=== PATIENT | male | born 1955 | race Caucasian/White ===

== ENCOUNTER → 2020-06-16 10:47 | Outpatient (BNVA) | payer MEDICARE, SELFPAY | PROVIDERS: PCP Family Medicine; Referring Provider Family Medicine; Visit Provider Surgery | DX: Z12.11 Encounter for screening for malignant neoplasm of colon (principal) | CPT/HCPCS: 99202 ==

== ENCOUNTER 2020-06-24 12:48 | Day surgery (SDC) | payer MEDICARE, SELFPAY ==
[2020-06-24 12:55] VITALS: BP 140/83; PULSE 67; RESP 16; TEMP 36.7; O2SAT 95
[2020-06-24] MEDS: Lactated Ringers 1,000 ML 80 ML IV (13:28)
--- NOTE | 2020-06-24 14:43 | W.PM.DSUDISC ---
Discharge Plan Disposition Patient Disposition: HOME Condition: Good Discharge Details Reason For Visit: colon scope Attending Provider: Angela Rutledge Primary Care Provider: Phil Ventura Discharge Instructions Additional Instructions: Findings:diverticula (moderate) - follow a high fiber diet and avoid straining to move your bowels -small lt meals x 24 hours -no lifting over 20#'s or strenuous actively x 24 hrs Follow up: repeat in 10 yrs time if still healthy for anesthesia Please call if you develop: fevers >101.5 Nausea or Vomiting Abdominal pain that is not transient DAY SURGERY UNIT POST COLONOSCOPY INSTRUCTIONS 1. Because there will be medication in your system for the next 24 hours, you may feel a little sleepy. Your coordination will be affected. Therefore: a. Do not drive or operate dangerous equipment for 24 hours. b. Do not drink alcohol beverages for 24 hours (not even beer). c. Plan to go home and rest for the day. 2. Generally there are no restrictions on your activity after a day or so has gone by, but you may feel a bit fatigued for a few days. 3 After you arrive home you may have a light meal and return to a normal diet as you can tolerate it without feeling sick to your stomach. 4. After surgery, you may feel pain or discomfort. This should be only transient, but if it persists please contact your doctor. 5. If there are any questions regarding the findings of your procedure, please feel free to contact your doctor. 6. If you are unable to contact your doctor with a problem, contact the hospital at [phone]. 7. Continue all your regular medications unless directed otherwise. I understand the above instructions and have no questions. Signature of Patient or Responsible Adult Escort Date/Time Name of Responsible Adult Escort Signature of Nurse Date/Time High Fiber Diet What is Dietary Fiber? All fiber comes from plants, bushes, loly or trees. Of course, the ones that we eat provide us with fruits, vegetables and grains. There are many different types of fiber but the three that are most important to the health of the body are: Insoluble Fiber This fiber does not dissolve in water, nor is it fermented by the bacteria residing in the colon. Rather, it retains water and in so doing, helps to promote a larger, bulkier and more regular bowel activity. This, in turn, may be important in preventing disorder such as diverticulosis and hemorrhoids, and in sweeping out certain toxins and cancer causing carcinogens. Sources of insoluble fiber are: ? whole grain wheat and other whole grains ? corn bran, including popcorn, unflavored and unsweetened ? nuts and seeds ? potatoes and the skins from most fruits from trees such as apples, bananas and avocados ? many green vegetables such as green beans, zucchini, celery and cauliflower ? some fruit plants such as tomatoes and kiwi Soluble Fiber These fibers are fermented or used by the colon bacteria as a food source or nourishment. When these good bacteria grow and thrive, many health benefits occur in both the colon and the body. Soluble fiber is present in some degree in most edible plant foods, but the ones with the most soluble fiber include: ? legumes such as peas and most beans, including soybeans ? oats, rye and barley ? many fruits such as berries, plums, apples bananas and pears ? certain vegetables such as broccoli and carrots ? most root vegetables ? psyllium husk supplement products Prebiotic Soluble Fiber These are relatively newly discovered soluble plant fibers. The technical name for this fiber is inulin or fructan. When these soluble fibers are fermented by the good colon bacteria, some further significant health benefits have been shown to occur by research in many medical centers. These soluble prebiotic fibers occur in significant amounts in: ? asparagus ? yams ? onions ? garlic ? bananas ? leeks ? agave ? chicory and other root vegetables such as [place] artichokes ? wheat, rye and barley (smaller amounts) Benefits of a High Fiber Diet The health benefits of a high fiber diet, consumed on a regular basis and reaching recommended amounts (below), are now fairly well-defined. There are some additional benefits in the early research stage with the prebiotic soluble fibers. What is now known regarding a high fiber diet include: Bowel Regularity A high fiber diet promotes regularity with a softer, bulkier and regular stool pattern. This decreases the chance of hemorrhoids, diverticulosis and perhaps colon cancer. Cholesterol and Reduced Triglycerides The soluble fibers are the ones that will reduce cholesterol levels when used on a regular basis. Psyllium husk and prebiotic soluble fiber will also reduce cholesterol. They may also reduce the incidence of coronary heart disease. Oats, flax seeds and legumes or beans are the recommended fibers. Colon Polyps and Cancer It is still not certain if a high fiber diet helps prevent colon cancer. Considerable research suggests that this may occur. Certainly it makes sense to increase regularity and so speed the movement of cancer causing carcinogens through the bowel. In addition, reducing a heavy meat diet reduces the bile flow from the liver in a favorable way. This, too, reduces the amount of carcinogens that reach and are manufactured in the colon. Finally, a high fiber diet, including prebiotic soluble fiber, increases the integrity and health of the wall of the colon. The risk of cancer may be reduced. Colon Wall Integrity A high fiber diet changes the bacterial makeup of the colon toward a more favorable balance. For instance, it is known that those people with obesity, diabetes type 2 and inflammatory bowel disease have a predominance of bad bacteria in the colon. This, in turn, may render the bowel wall weak and allow bacteria and, indeed, even toxins to seep through. A high fiber diet with a modest reduction in animal and meat products may return the bacterial makeup to a more positive balance. This, in particular, has been seen when the soluble fiber prebiotics are added to the diet. Blood Sugar Soluble fiber such as in legumes (beans), oats and in prebiotic fibers slows the absorption of blood sugar and so helps regulate the sugar in the blood. Insoluble fiber on a regular basis is associated with reduced risk of type 2 diabetes. Weight Loss High fiber diets are more filling and give a sense of fullness sooner than an animal and meat based diet does. In addition, the soluble prebiotic fibers have been shown to turn off the hunger hormones produced in the wall of the gut and to increase the hormones that give a sense of fullness. Those hormones are made in the wall of the gut. New medical research has shown that the bacterial makeup in the colon in overweight people is abnormal to the extent that they manufacture and absorb almost twice the number of calories through the colon wall as do normals. Prebiotic fibers (below) will help change this hormonal balancein a favorable way. Bacteria and the Function of the Colon The colon finishes the digestive process. Hopefully, the waste products move through in a nice regular manner. Insoluble fibers help this process by retaining water and so producing a bulkier, softer stool, which is easy to pass. The additional role of the colon is to provide a home for an enormous number of micro-organisms, mostly bacteria. Recent research has shown that there are over 1,000 species of bacteria with a total bacterial count ten times the number of cells in the body. These bacteria play a major role in keeping the colon wall itself healthy. In addition, these good bacteria produce a very strong immune system for the body. They significantly increase calcium absorption and bone density. They provide other documented benefits. It is the soluble fibers in the diet that are so effective in stimulating the growth of good colon bacteria. How Much is Enough? The amount of fiber in food is measured in grams. National nutritional authorities recommend the following amounts of dietary fiber daily. Under Age 50 Over Age 50 Men 38 grams 30 grams Women 25 grams 21 grams For a week or so, it is best to tally the amount of fiber you are consuming. Boxed and packaged foods will have the amount of fiber per serving on the nutrition label. Which Fibers and Which Foods are Best? As noted, healthy fiber is only found in plants. The three major categories are whole grains, fruits and vegetables. Whole Grains Wheat, oats, barley, wild or brown rice, amaranth, buckwheat, bulgur, corn, millet, quinoa, rye, sorghum, teff and triticals. By far, wheat, oats and wild or brown rice are most common. Always buy whole grain products. White bread, baked goods and rolls almost always are made from wheat flour. Wheat flour is white because most of the fiber, vitamins and other nutrients have been removed. Try not buy enriched grains. What this means is that simple white flour has had vitamins added to it by the grain commodity manager. The word, enriched, implies a good and healthy product. On the contrary, enriched means that most of the fiber has been removed and a few vitamins added. Fruits Fruits come from trees such as apple and pear or from bushes or loly. You should eat a wide variety of fruits, preferably with every meal. In many cases, the skin of a fruit such as apple will contain much of the insoluble fiber while the pulp contains most of the soluble fiber. To the extent possible, buy organic fruits as these will have little or no pesticides. Always wash fruit. Vegetables Eat a wide variety of vegetables. They should be a mainstay of lunch and dinners. Frozen vegetables retain as much nutrition and fiber as fresh vegetables. As with fruit, try to buy organic to reduce any residual pesticide ingestion. Wash fresh vegetables thoroughly. Cruciferous vegetables such as broccoli, [place] sprouts and cauliflower contain certain chemicals such as sulforaphane. This substance has very strong anti-cancer properties and should be eaten frequently. Legumes, Beans, Peas and Soybeans These vegetables have plenty of soluble fiber and should be part of a varied vegetable intake. Beans, in particular, contain a certain type of fiber that may lead to harmless gas or bloating. Nuts and Seeds These are rich sources of fiber and are a good substitute for sweets such as candies and baked sweet goods. While nuts and seeds are rich in fiber, they also contain vegetable fat and so can and do add calories. Read the Labels As noted, fresh and frozen foods are usually better. They have good nutrition and few, if any, chemicals added to them. When buying packaged foods and, in particular grains, look for three things: ? The first word on the label should be whole, such as whole wheat or whole grain. ? Check out the calories and the amount of fiber in a serving. ? How many and what other additives or chemicals are added. Fewer is always better. Do you know what each additive does? Some are added not for the benefit of the laboratory equipment installer but rather for manufacturers. These could and do include sugar, artificial flavor, chemicals to prevent oxidation and spoilage, emulsifiers to blend the product. You have to be a starch cooker. Fiber Facts, Nuggets and Pearls ? For breakfast you can easily get the day started well by using a high fiber, whole grain cereal. Check the labels. Add fruit such as blueberries and bananas. If you are an egg eater, use whole wheat or grain toast. Adding wheat germ gives you a good fiber kick. ? Always use whole grain or wheat with rolls and sandwiches. Does your fast food store not have them? Perhaps you look elsewhere. Eating an occasional black amador or veggie burger provides variety. ? Snacks should consist of fruit and/or nuts. While nuts are loaded with fiber, they are an energy rich food, meaning they have a lot of calories in a small packet. ? Fruit juices should contain pulp. Clear juices such as clear orange, pear or apple juice contain little fiber and have a lot of fructose. Prune juice is usually high in fiber. ? Homemade soups ? adding fresh or frozen vegetables to a chicken or vegetable stock is a good way to start homemade soup. ? Salads ? adding cooked and then chilled vegetables provide great flavoring to almost any salad. Remember, a lee salad has lots of cooked corn in it. Small slices of apples or oranges and nuts such as chopped walnuts or sliced almonds always adds taste, variety and fiber to almost any salad. ? Fruit ? Try to eat fruit of some type with almost every meal. ? Rethink how you place the various foods on your dinner plate. Reducing the portions of the meat or animal food portion to the side with equal or more portions of vegetables, legumes and fruits portion always allows for more fiber. There was never anything magic about making the meat or animal food portion the main part of the dinner plate. Eating from smaller plates can, over time, trick your mind and penitentiary habit of using a dinner plate. Again, there is nothing magic in an 11, 12, or 13 inch dinner plate. Fiber Supplements There are a variety of fiber supplements available on the food or pharmacy shelves. Psyllium This soluble plant fiber has been used in [place] for over 2,000 years. It is a soluble fiber with mucilage in it. This acts to retain a lot of water and also is fermented by colon bacteria. When 7 grams a day are used, it does lower cholesterol. Metamucil in various forms is psyllium. Methyl Cellulose All the cellulose products come from finely ground wood chips which are then treated in a variety of ways such as boiling in acids. Methyl cellulose is an insoluble fiber which does dissolve in water. It is also an emulsifier, meaning it blends oils and water. Citrucel is methyl cellulose (MC). MC may not be appropriate for Crohn?s disease or ulcerative colitis as several medical studies have shown that certain emulsifiers dissolve the mucous lining of the colon in animals prone to Crohn?s disease. This then allows bacteria to invade the underlying tissue. Inulin Inulin is a soluble prebiotic fiber found in many foods and which are fermented mostly in the left side of the colon. It is available in a supplement as generic inulin and in Fiber Choice. Oligofructose FOS These are also prebiotic fibers. They are fermented very quickly in the right side of the colon. Prebiotin This product is a combination of oligofructose, which feeds the bacteria in the right side of the colon and inulin, which does the same in the left side of the colon. There seems to be a benefit for this particular formula based on medical research. Prebiotic Soluble Fiber These may be the healthiest of all the soluble fibers. They grow in many plants and have had a great deal of research done on them in the last 10-15 years. These fibers are found in asparagus, yams and other root vegetables such as chicory, garlic, onion, leeks and in smaller amounts in wheat. This research has shown the following: ? Increase in good and decrease in bad colon bacteria ? Increase calcium absorption and enhanced bone mass ? Enhanced immune system ? Appetite and weight control by changing the hormone appetite signals to the brain ? May decrease colon cancer incidence ? Reduce or correct a leaky colon Eating a wide variety of plant food up to the recommended amount will likely give you enough prebiotic fiber. Supplements such as Prebiotin can be added to the diet. Short Chain Fatty Acids (SCFA) Some rather remarkable research findings have shown that one of the benefits of ingesting a lot of soluble fiber, in particular the prebiotic ones, results in larger amounts of SCFAs in the colon. These SCFAs are made by the good bacteria in the colon such as Bifidobacter and Lactobacillus. These small molecules have been shown to do the following: ? Enhance the health and integrity of the colon wall ? Provide nourishment for the cells that actually line the colon ? Increases the acidity of the colon which is a very real health benefit ? Stabilize blood sugar for diabetics ? Reduce blood cholesterol and triglyceride ? Significantly enhance immunity ? May be a benefit for Crohn?s disease and ulcerative colitis patients Fiber and Gas Everyone has intestinal gas and that is a good thing. It means that bacteria, hopefully the good ones, are thriving. The normal amount of flatus passed each day depends on sex and what is eaten. The normal number of flatus is 10-20 times a day. When the bacteria that make intestinal gases are growing, it also means that other good bacteria are using the same fibers to grow and produce multiple health benefits, including the production of healthy short-chain fatty acids. These substances are produced quietly in the colon and produce many health-related outcomes. Soluble fiber should always be used in a gradual manner. If too much is consumed at any one time, then excess, but harmless, intestinal gas can occur. People with irritable bowel syndrome are particularly prone to bloating and mild cramping. In this instance, soluble fiber in the diet or supplement should be used in small doses and increased gradually. Finally, prebiotic fibers tend to cause the production of short-chain fatty acids which acidify the colon. This, in turn, reduces or stops the growth of bacteria that make the smelly hydrogen sulfide gases that produce noxious flatus. People who consume many vegetables with prebiotics or take a prebiotic fiber supplement often have non-odoriferous flatus. Fiber and Irritable Bowel Syndrome Irritable bowel syndrome (IBS) is one of the most common disorders of the lower digestive tract. The symptoms of IBS can be quite varied. They can be a mix of several symptoms such as constipation, diarrhea, crampy abdominal discomfort, bloating and gas. An attack of IBS can be triggered by emotional tension and anxiety, poor dietary habits and certain medications. It is now known that infections in the intestine can lead to long-term IBS symptoms. Increased amounts of fiber in the diet can help relieve the symptoms of irritable bowel syndrome by producing soft, bulky stools. This helps to normalize the time it takes for the stool to pass through the colon. Recent medical research with newer techniques has shown some surprising and dramatic findings for IBS patients. Specifically, there is a very significant and abnormal shift of bacteria from those that provide health benefits to those bad bacteria that we really do not want in the gut. The technical name for this bad group of bacteria is called Firmicutes. Along with this abnormal bacterial collection, there is a smoldering low-grade inflammation in the gut wall that may contribute to symptoms. The goal for IBS patients should be to gradually increase the soluble dietary fibers in the diet so as to promote the growth of good bacteria and so suppress the bad ones along with the associated inflammation. IBS patients need to be careful of the amount of soluble fiber they consume. The reason for this is that, while the good colon bacteria thrive on these fibers and produce health benefits, other gas-forming bacteria may generate excessive but harmless gas and subsequent bloating. Thus, soluble plant fibers or a dietary prebiotic supplement should be taken in small initial doses and then gradually increased to tolerance. Fiber and Colon Polyps/Cancer Colon cancer is a major health problem. This disease is most common in Western cultures. It is not seen very often in rural cultures where the diet is mostly plant based. Usually, colon cancer starts out as a colon polyp, a benign mushroom-shaped growth. In time it grows, and in some people it becomes cancerous. Colon cancer is usually always curable if polyps are removed when found or if surgery is performed at an early stage. It is now known that people can inherit the risk of developing colon cancer, but diet is important, too. As noted, there is a very low rate of colon cancer in residents of countries where grains are unprocessed and retain their fiber. It seems that in the [place] world, cancer-containing agents (carcinogens) remain in contact with the colon wall for a longer time and in higher concentrations. So, a large bulky stool may act to dilute these carcinogens by moving them through the bowel more quickly. Less carcinogenic exposure to the colon may mean fewer colon polyps and less cancer. A very current review of the entire world?s literature on the effect of fiber on colon polyps and cancer prevention has shown rather clearly that for every 10 grams of fiber added to the diet, there is a 10% reduction in incidence of colon cancer. So the recommended 30 gram fiber diet would result in a 30% less chance of getting these tumors. There are also substances produced in the colon by the good bacteria that seem to retard certain pre-cancer factors from developing. They are called short-chain fatty acids (SCFA). See above for description of SCFAs. A high fiber diet increases these substances. So, the combination of dietary fiber and the production of short-chain fatty acids have a clear health benefit. Fiber and Diverticulosis Prolonged, vigorous contraction of the colon over a long period of time may result in diverticulosis. This increased pressure causes small and, eventually, larger ballooning pockets to form. These pockets by themselves cause no problem. However, sometimes they become infected (diverticulitis) or even break open (perforate) causing infection or inflammation within the abdomen (peritonitis). A high fiber diet increases the bulk in the stool and thereby reduces the pressure within the colon. By so doing, the formation of pockets may be reduced or possibly even stopped. In the past, many physicians were fearful that seeds as in tomatoes, nuts or berries were harmful and could get inside these pockets and rattle around, causing damage. We now know that this has never been the case and that these foods contain lots of fiber and are actually beneficial for diverticulosis patients. Certain bulking agents such as psyllium are traditional types of bulk producing supplements. Psyllium is a soluble fiber. Combining it with insoluble fiber as in wheat bran or corn bran (no gluten) can enhance this bulking effect even more. A product containing a prebiotic, psyllium and wheat bran is probably a very good combination for bowel regularity. Prebiotin Regularity/Diverticulosis is one such product. Activity:: no lifting or 20#'s Diet:: small light meals x 24 hr Discharge Orders Discharge Orders: Discharge Order (Routine); Ordered 06/24/20 Ordered By: Angela Rutledge DS: Diagnosis Discharge Diagnosis (1) Colon cancer screening: Status: Acute (2) Diverticular disease of large intestine: Status: Acute
[2020-06-24 15:27] VITALS: BP 154/83; PULSE 60; RESP 16; TEMP 36.4; O2SAT 97
--- NOTE | 2020-06-27 17:54 | COLE_ITS ---
Date of service: 06/24/20 Time of Service: 13:40 Colonoscopy Report Date of procedure: 06/24/20 Pre-op diagnosis general: crc screen Post-op diagnosis procedure note: other (diverticular Dx) Procedure: CE Surgeon: Angela Rutledge Anesthesia proc note operative: MAC Estimated blood loss (mL): 0 Pathology: none sent Complications: None Disposition: same day Prep: Miralax/Dulcolax Retraction Time: 9 mins Procedure Description: After informed consent was obtained the patient was taken to the procedure room and placed in a left decubitous position. Monitors were applied and a time out was done. The patients name, date of , procedure, allergies to medications and metal in their body was reviewed. The patient was then sedated. Once sedated and comfortable a rectal exam was done. External exam was normal. Internal exam revealed a normal sphincter tone and no palpable masses. The scope was then introduced and retrofelexed. no internal hemorrhoids were identified. The scope was then advanced to the cecum w/ difficulty. The TI and appendiceal orifice were identified. The prep was good. The scope was then slowly retracted over 9 minutes back into the rectum. Polyps were removed: none. Patient does have moderate to severe diverticular disease confined to the sigmoid colon. There is no signs of active bleeding or infection. There is no polyps or AVMs noted. The scope was removed and the patient was woken up and taken back to Same day surgery in stable condition. The patient tolerated the procedure well and there were no immediate complicat ions. Follow up: The patient should follow up in 10 years unless they develop changes in bowel habits or other new gastrointestinal complaints, if he is still healthy for anesthesia. Does not necessarily need to have a repeat scope if asymp. Follow a high fiber diet.
== END 2020-06-24 15:45 | disposition home or self-care (01) ==
PROVIDERS: PCP Family Medicine; Visit Provider Surgery
PROC: 0DJD8ZZ Inspection of Lower Intestinal Tract, Via Natural or Artificial Opening Endoscopic (ICD-10-PCS; CPT 45378; principal; 2020-06-24 13:45)
DX: Z12.11 Encounter for screening for malignant neoplasm of colon (principal)
CPT/HCPCS: G0121

== ENCOUNTER 2020-06-29 07:22 | Outpatient (CLI) | payer MEDICARE, SELFPAY ==
[2020-07-01 12:22] LABS: Patient Race White; SARS-CoV-2 RNA Undetected (Undetected); SARS-CoV-2 Specimen Source Nasopharynx
== END 2020-06-29 07:42 ==
PROVIDERS: PCP Family Medicine; Visit Provider Family Medicine
DX: Z20.828 Contact with and (suspected) exposure to other viral communicable diseases (principal)
CPT/HCPCS: U0003

== ENCOUNTER 2024-01-28 00:53 | Inpatient (IN) | payer MEDICARE, SELFPAY ==
[2024-01-28] VITALS (59 sets, daily range): BP systolic 109–165; BP diastolic 71–117; PULSE 67–100; RESP 5–22; TEMP 36.7–37.8; O2SAT 93–100
--- NOTE | 2024-01-28 00:45 | RT.EKG_ITS ---
APPROVED REPORT Exam: Resting ECG Reason for Exam: chest paijn Patient Location: E HR:85 bpm ECG Measurements Heart Rate 85 AXIS CA 192 P 55 QRSd 82 QRS 52 QT 373 T 27 QTc 443 Conclusion Sinus rhythm...normal P axis, V-rate 60- [address] segment or t wave abnormalities to suggest occlusive mi
--- NOTE | 2024-01-28 01:15 | DI.CT_ITS ---
Exam(s) CT ABDOMEN PELVIS W EXAM: CT ABDOMEN PELVIS W CLINICAL HISTORY: diffuse abd pain, RUQ TTP with guarding TECHNIQUE: Imaging Protocol: Axial computed tomography images with coronal and sagittal reformatted images were created and reviewed. CONTRAST MATERIAL: Intravenous: Omnipaque 350 Contrast volume:100 mL Oral: No COMPARISON: No exams were available for comparison FINDINGS: ABDOMEN: Lung Bases: Coronary artery calcifications are present. There is scarring or atelectasis in the righ t lower lobe. Liver: Normal density. No measurable mass. Portal, Superior Mesenteric, and Splenic Veins: Unremarkable. Gallbladder and Biliary Tract: The gallbladder is distended. There are gallstones present. There is mild inflammation seen around the gallbladder wall in the gallbladder fossa. There is no biliary du ctal dilatation. Pancreas: Normal density, no abnormal calcifications or inflammatory process. Spleen: Normal. Adrenals: No masses seen. Kidneys: Normal size, contour and axis. No radiodense stones or obstructive uropathy. Simple bilatera l renal cysts are present. No follow-up is recommended. Abdominal Aorta: Abdominal portion non-dilated. Atherosclerotic calcification is present. Bowel: There is diverticulosis of the colon without evidence of acute diverticulitis. There is a div erticulum associated with the head of the pancreas likely reflecting a duodenal diverticulum. The st omach is incompletely distended limiting evaluation. Appendix is unremarkable. Peritoneal Cavity: No ascites, collection or mesenteric inflammatory response. No free air. Lymph Nodes: Within normal limits. Bones: Within normal limits for the patient's age. Soft Tissues: There are small fat containing bilateral inguinal hernias. PELVIS: Bladder: The urinary bladder is incompletely distended. There is diffuse thickening of the wall of t he urinary bladder. Reproductive Organs: Mild enlargement of the prostate gland. Lymph Nodes: Within normal limits. Bones: Within normal limits for the patient's age. IMPRESSION: 1. Findings suggestive of acute cholecystitis. Cholelithiasis is present. No biliary ductal dilatat ion. 2. Diffuse thickening of the wall of the urinary bladder. This may be due to underdistention. Chron ic bladder outlet obstruction or cystitis should also be considered. Please correlate clinically. RADIATION DOSE DELIVERED: 911.92mGy.cm Total DLP DATA REPOSITORY: All CT scans at this facility are submitted to the National Radiology Data Registry (NRDR) Dose Index Registry (DIR) with the [employer] (ACR). RADIATION OPTIMIZATION: All CT scans at this facility use at least one of these dose optimization te chniques: automated exposure control; mA and/or kV adjustment per patient size (includes targeted exa ms where dose is matched to clinical indication); or iterative reconstruction.
--- NOTE | 2024-01-28 01:20 | ED.GENADUL_ITS ---
Discharge Plan Disposition Patient Disposition: Admit to [facility] Condition: Serious Discharge Details Chief Complaint: Abd Prob Clinical Impression: Acute cholecystitis Primary Care Provider: Phil Ventura ED Provider: Neetu Gonzalez Home Meds and New Rx's Prescriptions: No Action No Known Home Meds HPI General Mode of arrival: ambulatory . Date/Time Provider Initiated Documentation: 01/28/24 01:18 . Limitations to Documentation: no limitations . Information obtained by: patient . HPI Narrative: 68yo M with hx of HTN, not on any medications, presenting for 3 days of right sided abdominal pain, feels similar to prior kidney stones. Pain is constant, severe, and now associated with nausea. No vomiting. No dysuria or hematuria. No chest pain, shortness of breath, or lightheadedness. Otherwise in his usual state of health with no fevers, chills, rash, injury, numbness, tingling, weakness, or other concerns. Related Data Home Medications Medication Instructions Recorded Confirmed Unknown [No Known Home Meds] 07/13/20 01/28/24 Allergies Allergy/AdvReac Type Severity Reaction Status Date / Time amoxicillin Allergy Unknown Verified 07/13/20 10:04 General Stated Complaint: Abd Prob WILLIE: 3 Review of Systems Narrative: see HPI Exam Narrative Exam Narrative: General: Alert, well appearing, well nourished, in no acute distress. Head: Normocephalic, atraumatic Neck: Trachea midline, ?Neck supple. ENT: ?MMM.? No oropharygeal lesions or exudate. Cardiac: ?RRR, no murmurs appreciated Resp: No respiratory distress. CTAB. Abd: ?Soft, non-distended. RUQ TTP. + Rm's : ?No suprapubic tenderness. No CVA tenderness. Extremities: ?No deformities.? No peripheral edema. Neurologic: GCS 15. ? Moves all extremities freely against gravity Course Vital Signs Vital signs: Vital Signs Pulse 79 01/28/24 00:57 Respiratory Rate 14 01/28/24 00:57 Blood Pressure 163/117 H 01/28/24 00:57 Pulse Oximetry 98 01/28/24 00:57 Temperature 37.1 C 01/28/24 01:11 Temperature Source Temporal Artery Scan 01/28/24 01:11 Pulse 87 01/28/24 01:11 Respiratory Rate 16 01/28/24 01:11 Respiratory Effort Normal 01/28/24 01:03 Blood Pressure 163/117 H 01/28/24 01:11 Blood Pressure Position Supine 01/28/24 01:11 Pulse Oximetry 98 01/28/24 01:11 Oxygen Delivery Method Room Air 01/28/24 01:11 Oxygen Flow Rate 0 01/28/24 00:57 Pain Level 9 01/28/24 01:11 Comment Doesn't go to the Doctor. 10 years ago. 01/28/24 00:57 Medical Decision Making 68yo M with hx of HTN, not on any medications, presenting for 3 days of right sided abdominal pain, feels similar to prior kidney stones. Pain is constant, severe, and now associated with nausea. Hypertensive on arrival, vital signs otherwise reassuring. No fevers or tachycardia to suggest sepsis. RUQ TTP on exam with + rm's. High level of suspicion for gallbladder pathology, less likely ACS, bowel obstruction, aortic dissection. EKG NSR, appropriate intervals, no ST segment or T wave abnormalities to suggest occlusive UT. Given tylenol, toradol. Labs reviewed as below, CBC with leukocytosis to 15, CMP with elevated bilirubinat 1.9, mild AST & ALT elevations. Troponin and BNP normal; would not further pursue acute coronary syndromes. UA with hematuria, not suggestive of infection. CT abd/pelvis independently reviewed, agree with radiology read below with dilated gallbladder and surrounding inflammation. Patient with amox allergy; will give flagyl and cipro. Added morphine and zofran for symptoms. Discussed with surgery Dr. Rutledge; plan for OR later today, requested bridging orders be placed which was done. Awaiting transfer to the floor. Imaging Data Radiologic Study: Imaging: CT Scan Radiologist's impression: IMPRESSION: 1. Prominent gallbladder distension with pericholecystic fat stranding, perihepatic fluid, and radiodense debris in the gallbladder lumen, presumably stones and sludge. Findings suggest acute cholecystitis. Surgery consultation is recommended. 2. Circumferential bladder wall thickening. Clinical correlation is recommended to exclude acute cystitis. Artifact of underdistention could probably simulate this appearance. Lab Data Lab results reviewed: Yes I reviewed the patient's lab results. Labs: Laboratory Tests Range/Units 01/28/24 01/28/24 01:17 01:26 WBC (4.4-10.8) 10^3/uL 14.79 H RBC (4.36-5.78) 10^6/uL 4.75 Hgb (13.5-17.5) g/dL 14.6 Hct (40.0-50.0) % 43.7 MCV (80-95) fL 92 MCH (27.0-33.0) pg 30.7 MCHC (32.0-36.0) % 33.4 RDW (11.8-14.1) % 12.8 Plt Count (130-400) 10^3/uL 225 MPV (8.0-11.0) fL 9.4 Immature Gran % 0.4 Neutrophils % 57.6 Lymphocytes % 37.9 Monocytes % 3.6 Eosinophils % 0.1 Basophils % 0.4 Nucleated RBC % (0.0-0.3) % 0.0 Absolute Neutrophils (1.2-6.7) 10^3/uL 8.52 H Absolute Lymphocytes (1.2-3.4) 10^3/uL 5.61 H Absolute Monocytes (0.1-0.8) 10^3/uL 0.53 Absolute Eosinophils (0.0-0.7) 10^3/uL 0.01 Absolute Basophils (0.0-0.2) 10^3/uL 0.06 RBC Morphology Normal Sodium (136-145) mmol/L 137 Potassium (3.5-5.1) mmol/L 3.9 Chloride (98-107) mmol/L 100 Carbon Dioxide (21.0-32.0) mmol/L 28.3 Anion Gap (3-11) mmol/L 8.7 BUN (7-18) mg/dL 11 Creatinine (0.70-1.30) mg/dL 1.1 Est GFR (CKD-EPI 2020) (mL/min/1.73m2) 72.22 Glucose (74-106) mg/dL 132 H Calcium (8.5-10.1) mg/dL 9.0 Total Bilirubin (0.2-1.0) mg/dL 1.9 H AST (15-37) U/L 106 H ALT (16-63) U/L 134 H Alkaline Phosphatase (46-116) U/L 96 Troponin I (< or =60) ng/L < 50 NT-Pro-B Natriuret Pep (<300) pg/mL 52 Total Protein (6.4-8.2) g/dL 7.7 Albumin (3.4-5.0) g/dL 3.6 Lipase (16-77) U/L 22 Urine Color (Yellow) Yellow Urine Clarity (Clear) Clear Urine pH (5-8) 5.5 Ur Specific [place] (1.005-1.025) 1.025 Urine Protein (Neg-Trace) mg/dL 30 H Urine Ketones (Negative) mg/dL 40 H Urine Blood (Negative) Moderate H Urine Nitrite (Negative) Negative Urine Bilirubin (Negative) Small H Urine Urobilinogen (Up to 0.2) mg/dL 2.0 H Ur Leukocyte Esterase (Negative) Negative Urine RBC (0-2) HPF 5-10 H Urine WBC (0-5) HPF 0-2 Ur Epithelial Cells (Negative) HPF Rare Urine Crystals (Negative) HPF Negative Urine Bacteria (Negative) HPF Few Urine Mucus (Negative) Moderate Urine Other (Negative) Rare Renal Ur Culture Indicated? No Urine Glucose (Negative) mg/dL Negative Quality:SDOH Health Related Social Needs: No Data to Display PFSH All Active Problems (Updated 01/28/24 @ 03:17 by Neetu Gonzalez MD) Acute cholecystitis (Acute) Diverticular disease of large intestine (Acute) Colon cancer screening (Acute) Medical History (Updated 01/28/24 @ 03:17 by Neetu Gonzalez MD) Kidney stones 1977 and 1986 Surgical History (Updated 06/24/20 @ 13:06 by Aure Milner RN) History of colonoscopy H/O knee surgery History of hernia repair (~12/28/10) [facility] Family History Father Lung cancer Hypertension Maternal Grandfather Lung cancer Mother Diabetes Social History (Updated 07/13/20 @ 10:14 by Magda Irizarry RN) Smoking/Tobacco Use Status: Current every day Tobacco Type: smokeless tobacco Smokeless tobacco user: chewing tobacco Smoking risk assessment performed?: Yes Alcohol Intake: current Alcohol Intake frequency: 3 or more drinks per day Alcohol type: beer Drug use: Never Substance use type: does not use Adopted: No Caregiver/Support person: No Foster care: No Household members: spouse Housing: house Number of Children: 3 Do you need help understanding health information?: Rarely current occupation: [employer], Retired Sexually active: Yes Do you think of yourself as: straight/heterosexual Current gender identity: male What is your relationship status?: Panel score (0-1 are the most socially isolated patients): 1 What type of physical activity do you participate in: walking Duration: 45-60 minutes/day Frequency: daily Do you feel safe at home: Yes Do you feel safe in your relationship?: Yes Additional Social history: unable to answer vladimir MITCHELL Have you Been Recently Intoxicated or Drunk Within the Last 30 days?: No Have you Ever Experienced Previous Episodes of Alcohol Withdrawal?: No Have you ever Experienced Withdrawal Seizures?: No Have you ever Experienced Delirium Tremens(DT)s?: No Have you ever undergone Alcohol Rehabilitation Treatment (i.e, inpt ot outpatient treatment programs)?: No Have you ever Experienced Blackouts?: No Have you ever Combined Alcohol with other Downers within the last 90 days?: No Have you ever Combined Alcohol with any other Substance of Abuse during the last 90 days?: No Positive Blood Alcohol level on Presentation? [PCS.BAL]: No Evidence of Increased Autonomic Activity (i.e. HR>120, tremor, sweating, agitation, nausea)?: No Result: 0
[2024-01-28 01:31] LABS: Abs Immature Grans 0.06 10^3/uL (0.0-0.06); Absolute Basophil Count 0.06 10^3/uL (0.0-0.2); Absolute Lymphocyte Count 5.61 10^3/uL (1.2-3.4); Absolute Monocyte Count 0.53 10^3/uL (0.1-0.8); Basophils % 0.4; Eosinophils % 0.1; HCT 43.7 % (40.0-50.0); HGB 14.6 g/dL (13.5-17.5); Immature Grans % 0.4; Lymphocytes % 37.9; MCH 30.7 pg (27.0-33.0); MCHC 33.4 % (32.0-36.0); MCV 92 fL (80-95); MPV 9.4 fL (8.0-11.0); Monocytes % 3.6; Neutrophils % 57.6; Platelet Count 225 10^3/uL (130-400); RBC 4.75 10^6/uL (4.36-5.78); RDW 12.8 % (11.8-14.1); RDW-SD 43.5 fL; WBC 14.79 10^3/uL (4.4-10.8)
[2024-01-28 01:33] LABS: Absolute Eosinophil Count 0.01 10^3/uL (0.0-0.7); Absolute Neutrophil Count 8.52 10^3/uL (1.2-6.7)
[2024-01-28 01:38] LABS: Bilirubin Small (Negative); Blood Moderate (Negative); Clarity Clear (Clear); Glucose Negative (Negative); Ketones 40 mg/dL (Negative); Leukocyte Esterase Negative (Negative); Nitrite Negative (Negative); Specific Gravity 1.025 (1.005-1.025); pH 5.5 (5-8)
[2024-01-28] MEDS: Omnipaque 350 MG/ML 100 ML BTL IJ (01:39)
[2024-01-28] MEDS: Normal Saline Flush 10 ML SYR IVP ×4 (01:40→23:47)
[2024-01-28] MEDS: Normal Saline - Diluent 50 ML VIAL IJ (01:40)
[2024-01-28] MEDS: Acetaminophen 500 MG TAB 1000 MG PO (01:41)
[2024-01-28] MEDS: Ketorolac 15 MG/ML VIAL IVP (01:41)
[2024-01-28 01:51] LABS: ALT 134 U/L (16-63); AST 106 U/L (15-37); Albumin 3.6 g/dL (3.4-5.0); Alkaline Phosphatase 96 U/L (46-116); Anion Gap 8.7 mmol/L (3-11); BUN 11 mg/dL (7-18); Bilirubin, Total 1.9 mg/dL (0.2-1.0); CO2 28.3 mmol/L (21.0-32.0); CREATININE 1.1 mg/dL (0.70-1.30); Chloride 100 mmol/L (98-107); Estimated GFR 72.22 (mL/min/1.73m2); Glucose 132 mg/dL (74-106); Lipase 22 U/L (16-77); NT-proBNP 52 pg/mL (<300); Potassium 3.9 mmol/L (3.5-5.1); Sodium 137 mmol/L (136-145); Total Protein 7.7 g/dL (6.4-8.2); Troponin I < 50 ng/L (< or =60)
[2024-01-28 01:52] LABS: Bacteria Few HPF (Negative); Crystals Negative HPF (Negative); Epithelial Cells Rare HPF (Negative); Mucus Moderate (Negative); Other Cells Rare Renal (Negative); WBC 0-2 HPF (0-5)
[2024-01-28 01:53] LABS: C & S Indicated? No
[2024-01-28 02:04] LABS: Diff Comment Diff Reviewed; RBC Morphology Normal
--- NOTE | 2024-01-28 02:54 | DI.VRAD_ITS ---
PROCEDURE INFORMATION: Exam: CT Abdomen And Pelvis With Contrast Exam date and time: 01/28/2024 1:52 AM Age: 68 years old Clinical indication: Abdominal pain; Localized; Right upper quadrant (ruq); Prior surgery; Surgery date: 6+ months; Surgery type: Hernia repair; Patient HX: Diffuse abd pain, ruq ttp with guarding TECHNIQUE: Imaging protocol: Computed tomography of the abdomen and pelvis with contrast. Radiation optimization: All CT scans at this facility use at least one of these dose optimization techniques: automated exposure control; mA and/or kV adjustment per patient size (includes targeted exams where dose is matched to clinical indication); or iterative reconstruction. Contrast material: OMNIPAQUE 350; Contrast volume: 100 ml; Contrast route: INTRAVENOUS (IV); COMPARISON: No relevant prior studies available. FINDINGS: Lungs: Platelike atelectasis at the right lung base. Diaphragm: Elevation of the right hemidiaphragm. Liver: Normal appearing liver. Gallbladder and bile ducts: Prominent gallbladder distension. Pericholecystic fat stranding. Gallstones and/or gallbladder sludge. No biliary dilatation. Pancreas: Normal appearing pancreas. Spleen: Normal appearing spleen. Adrenal glands: Normal appearing adrenal glands. Kidneys and ureters: Small indeterminate hypoattenuating left renal lesion, not well characterized but statistically most likely a small renal cyst. Bilateral parapelvic renal cysts. No hydronephrosis. No obstructing ureteral stones. Stomach and bowel: No oral contrast. Stomach partially distended with fluid. Small duodenal diverticula. No small bowel dilatation to suggest obstruction. Diverticulosis through the distal descending and sigmoid colon. No evidence of diverticulitis or colitis. Appendix: Normal retrocecal appendix. Intraperitoneal space: Small amount of free fluid in the perihepatic space. No free air. Vasculature: Tortuous abdominal aorta, normal in caliber. Lymph nodes: No pathologically enlarged mesenteric, retroperitoneal, or pelvic sidewall lymph nodes. Urinary bladder: Urinary bladder partially decompressed. Circumferential bladder wall thickening. Reproductive: Normal-appearing prostate gland and seminal vesicles. Bones/joints: No acute fracture seen among the bones of the abdomen or pelvis. Prominent discogenic degeneration at L5-S1. Soft tissues: Tiny fat-containing ventral hernia at the umbilicus, doubtful clinical significance. Small fat containing bilateral inguinal region hernias. IMPRESSION: 1. Prominent gallbladder distension with pericholecystic fat stranding, perihepatic fluid, and radiodense debris in the gallbladder lumen, presumably stones and sludge. Findings suggest acute cholecystitis. Surgery consultation is recommended. 2. Circumferential bladder wall thickening. Clinical correlation is recommended to exclude acute cystitis. Artifact of underdistention could probably simulate this appearance. Dictated and Authenticated by: Lucas Huang MD. Ordering:JUNIOR De Anda MD
[2024-01-28] MEDS: metroNIDAZOLE 500 MG/100 ML BAG 100 MG IVPB (03:15)
[2024-01-28] MEDS: Ondansetron 4 MG/2 ML VIAL IVP (03:16)
[2024-01-28] MEDS: MORPHine 4 MG/ML SYR (03:19)
[2024-01-28] MEDS: MORPHine 2 MG/ML SYR IVP ×3 (04:18→08:16)
[2024-01-28] MEDS: CIPROFLOXACIN 400 MG/200 ML BAG 200 MG IVPB (04:19)
--- NOTE | 2024-01-28 09:00 | HPE_ITS ---
Date of service: 01/28/24 Time of Service: 09:01 Assessment and Plan Assessment and plan (1) Acute cholecystitis: Status: Acute Assessment and plan: . They were given an information booklet on GB Dx and surgery.? The alternatives to surgery, risks, complications, and the possible need to convert to open cholecystectomy were discussed. Also bleeding, infection, pneumonia, blood clots, complications of anesthesia, damage to bowel, bladder, blood vessels, or bile ducts, liver, need for blood transfusions. Also: chronic pain, chronic diarrhea/post-maxim syndrome, reoccurrence of signs and symptoms, port site hernias, adhesions.? All questions were answered, and the patient elected to proceed with surgery. Also d/w pt dietary restrictions, -Continue antibiotics Clear liquids today as tolerated Pain management Plan for surgery tomorrow provided there is no restrictions from his previous tracheostomy. Otherwise patient would need to go to [facility] or [facility] whoever has availability (2) Diverticular disease of large intestine: Status: Acute (3) History of tracheostomy: Assessment and plan: Will need to review with anesthesia to see if he is a candidate for surgery at [facility] (4) Chewing tobacco dependence: Status: Acute (5) Left shoulder pain: Status: Acute History of Present Illness Narrative: ED: 68yo M with hx of HTN, not on any medications, presenting for 3 days of right sided abdominal pain, feels similar to prior kidney stones. Pain is constant, severe, and now associated with nausea. No vomiting. No dysuria or hematuria. No chest pain, shortness of breath, or lightheadedness Today: Patient ate Lira's on Sunday night prior to the pain starting. He is still having right upper quadrant pain today. Prior to Sunday he never he had not had any problems with his gallbladder. He does have a history of kidney stones and he thought this was another kidney stone attack but it continued to progress with associated nausea and came into the emergency room. Patient is hungry at this time. He has never had a heart attack per his stroke. He is active and walks 3 miles a day. He denies diabetes/hypertension/asthma or COPD. He did have a tracheostomy as a child. He does not know why. He did have a laparoscopic umbilical hernia with mesh done down at [facility]. He denies knowing if there is any problems with his airway. He had a colonoscopy at [facility] without any problems. He does chew. CT: BDOMEN: Lung Bases: Coronary artery calcifications are present. There is scarring or atelectasis in the right lower lobe. Liver: Normal density. No measurable mass. Portal, Superior Mesenteric, and Splenic Veins: Unremarkable. Gallbladder and Biliary Tract: The gallbladder is distended. There are gallstones present. There is mild inflammation seen around the gallbladder wall in the gallbladder fossa. There is no biliary ductal dilatation. Pancreas: Normal density, no abnormal calcifications or inflammatory process. Spleen: Normal. Adrenals: No masses seen. Kidneys: Normal size, contour and axis. No radiodense stones or obstructive uropathy. Simple bilateral renal cysts are present. No follow-up is recommended. Abdominal Aorta: Abdominal portion non-dilated. Atherosclerotic calcification is present. Bowel: There is diverticulosis of the colon without evidence of acute diverticulitis. There is a diverticulum associated with the head of the pancreas likely reflecting a duodenal diverticulum. The stomach is incompletely distended limiting evaluation. Appendix is unremarkable. Peritoneal Cavity: No ascites, collection or mesenteric inflammatory response. No free air. Lymph Nodes: Within normal limits. Bones: Within normal limits for the patient's age. Soft Tissues: There are small fat containing bilateral inguinal hernias. PELVIS: Bladder: The urinary bladder is incompletely distended. There is diffuse thickening of the wall of the urinary bladder. Reproductive Organs: Mild enlargement of the prostate gland. Lymph Nodes: Within normal limits. Bones: Within normal limits for the patient's age. IMPRESSION: 1. Findings suggestive of acute cholecystitis. Cholelithiasis is present. No biliary ductal dilatation. 2. Diffuse thickening of the wall of the urinary bladder. This may be due to underdistention. Chronic bladder outlet obstruction or cystitis should also be considered. Please correlate clinically. Review of Systems All systems reviewed & are unremarkable except as noted in HPI and below PFSH All Active Problems Left shoulder pain (Acute) Chewing tobacco dependence (Acute) Acute cholecystitis (Acute) Diverticular disease of large intestine (Acute) Colon cancer screening (Acute) Medical History Kidney stones 1977 and 1986 Surgical History History of tracheostomy History of colonoscopy H/O knee surgery History of hernia repair (~12/28/10) [facility] [place] Family History Father Lung cancer Hypertension Maternal Grandfather Lung cancer Mother Diabetes Social History Smoking/Tobacco Use Status: Current every day Tobacco Type: smokeless tobacco Smokeless tobacco user: chewing tobacco Smoking risk assessment performed?: Yes Alcohol Intake: current Alcohol Intake frequency: 3 or more drinks per day Alcohol type: beer Drug use: Never Substance use type: does not use Adopted: No Caregiver/Support person: No Foster care: No Household members: spouse Housing: house Number of Children: 3 Do you need help understanding health information?: Rarely 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, 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 Sexually active: Yes Do you think of yourself as: straight/heterosexual Current gender identity: male What is your relationship status?: Panel score (0-1 are the most socially isolated patients): 1 What type of physical activity do you participate in: walking Duration: 45-60 minutes/day Frequency: daily Do you feel safe at home: Yes Do you feel safe in your relationship?: Yes Additional Social history: unable to answer [facility] Meds Allergies and Home Medications Allergies Allergy/AdvReac Type Severity Reaction Status Date / Time amoxicillin Allergy Unknown Verified 07/13/20 10:04 Home Medications Medication Instructions Recorded Confirmed Type Unknown [No Known Home Meds] 07/13/20 01/28/24 History Exam Const General: cooperative, healthy appearing, comfortable and well groomed Orientation: alert, awake and oriented x3 Other: PHYSICAL EXAM GENERAL APPEARANCE: Alert, healthy appearance, oriented, x 3,? in no acute distress HYDRATION: Well hydrated HEAD, EYES, EARS, NECK, THROAT: Head is normocephalic, pupils equal, round, reactive to light and accommodation, ocular movement intact, sclera clear and no jaundice. ?Dentition intacct. There is a slight scar from the previous trach noted. No JVD LUNGS: normal respiration/normal chest excursion. ?Clear to auscultation bilaterally. ?No wheeze. ?HEART: Regular rate and rhythm. no murmurs EXTREMITY: No edema or cyanosis.? no leg pain, redness, swelling.? ABDOMEN: Mild pain in right upper quadrant. Normal bowel sounds.? No hernias.? Postsurgical changes noted at the umbilicus Results Labs 01/28/24 01:17 01/28/24 01:17 Labs: Laboratory Results - last 24 hr 01/28/24 01/28/24 01/28/24 01:17 01:26 03:35 WBC 14.79 H RBC 4.75 Hgb 14.6 Hct 43.7 MCV 92 MCH 30.7 MCHC 33.4 RDW 12.8 Plt Count 225 MPV 9.4 Immature Gran % 0.4 Neutrophils % 57.6 Lymphocytes % 37.9 Monocytes % 3.6 Eosinophils % 0.1 Basophils % 0.4 Nucleated RBC % 0.0 Absolute Neutrophils 8.52 H Absolute Lymphocytes 5.61 H Absolute Monocytes 0.53 Absolute Eosinophils 0.01 Absolute Basophils 0.06 RBC Morphology Normal Sodium 137 Potassium 3.9 Chloride 100 Carbon Dioxide 28.3 Anion Gap 8.7 BUN 11 Creatinine 1.1 Est GFR (CKD-EPI 2020) 72.22 Glucose 132 H Calcium 9.0 Total Bilirubin 1.9 H AST 106 H ALT 134 H Alkaline Phosphatase 96 Troponin I < 50 NT-Pro-B Natriuret Pep 52 Total Protein 7.7 Albumin 3.6 Lipase 22 Urine Color Yellow Urine Clarity Clear Urine pH 5.5 Ur Specific Calhoun 1.025 Urine Protein 30 H Urine Ketones 40 H Urine Blood Moderate H Urine Nitrite Negative Urine Bilirubin Small H Urine Urobilinogen 2.0 H Ur Leukocyte Esterase Negative Urine RBC 5-10 H Urine WBC 0-2 Ur Epithelial Cells Rare Urine Crystals Negative Urine Bacteria Few Urine Mucus Moderate Urine Other Rare Renal Ur Culture Indicated? No Urine Glucose Negative Patient ABO/Rh B Positive Antibody Screen NEGATIVE Last Vital Signs Temp 37.4 C 01/28/24 07:40 Pulse 100 H 01/28/24 07:40 Resp 15 01/28/24 07:40 BP 130/84 01/28/24 07:40 Pulse Ox 93 01/28/24 07:40 PAWSS Have you Been Recently Intoxicated or Drunk Within the Last 30 days?: No Have you Ever Experienced Previous Episodes of Alcohol Withdrawal?: No Have you ever Experienced Withdrawal Seizures?: No Have you ever Experienced Delirium Tremens(DT)s?: No Have you ever undergone Alcohol Rehabilitation Treatment (i.e, inpt ot outpatient treatment programs)?: No Have you ever Experienced Blackouts?: No Have you ever Combined Alcohol with other Downers within the last 90 days?: No Have you ever Combined Alcohol with any other Substance of Abuse during the last 90 days?: No Positive Blood Alcohol level on Presentation? [PCS.BAL]: No Evidence of Increased Autonomic Activity (i.e. HR>120, tremor, sweating, agitation, nausea)?: No Result: 0 Time Spent Time spent with Patient: 40-54 minutes Time was spent: preparing to see the patient(eg.review tests), obtaining and/or reviewing separately otained hiistory, ordering medications,tests, procedures, referring, communicating with other health child caregiver private home, indepentently interpreting results, counseling the patient and care coordination
--- NOTE | 2024-01-28 09:42 | INITIAL_ITS ---
Date of service: 01/28/24 Time of Service: 09:42 Care Management Initial Assmt Initial Assessment REASON FOR HOSPITALIZATION:: Acute cholecystitis PREVIOUS FUNCTIONAL STATUS/SOCIAL/FAMILY SUPPORTS:: [place] [facility] [place] Their daughter Irena lives out of State. 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 He drives and is fully active and independent with his ADL/IADL's at baseline. CURRENT FUNCTIONAL STATUS:: Bernard was sitting up in bed when CM met with him. He is awake and engages in conversation. In terms of pain, he is feeling much better than he did three days ago. He is planning to go to the OR for surgical intervention intervention tomorrow. He has no questions or concerns at this time. ADVANCE DIRECTIVES:: None on file at [facility] Has patient been provided with info about the portal/API?: Yes Did the patient sign up for the portal?: No CODE STATUS:: Full Code INSURANCE COVERAGE / FINANCIAL ISSUES:: Commercial Ins [employer] Medicare CURRENT HOME/COMMUNITY SERVICES/EQUIPMENT:: None PRIMARY CARE PHYSICIAN:: Phil Garcia POTENTIAL DISCHARGE NEEDS:: discharge plan of care, follow up with community providers. PATIENT/FAMILY EDUCATION NEEDS:: Review discharge instructions, limitations, medications and plan to follow up with community providers TRANSPORTATION:: Via private vehicle with PLAN:: Surgical intervention in the OR is planned for tomorrow. Anticipate, Bernard will discharge home when medically ready. He will follow up with community providers and his discharge plan of care as instructed. will provider transportation. CM will continue to follow. PFSH All Active Problems Left shoulder pain (Acute) Chewing tobacco dependence (Acute) Acute cholecystitis (Acute) Diverticular disease of large intestine (Acute) Colon cancer screening (Acute) Medical History Kidney stones 1977 and 1986 Surgical History History of tracheostomy History of colonoscopy H/O knee surgery History of hernia repair [place]12[place]28/10[place] [facility] [place] Family History Father Lung cancer Hypertension Maternal Grandfather Lung cancer Mother Diabetes Social History Smoking/Tobacco Use Status: Current every day Tobacco Type: smokeless tobacco Smokeless tobacco user: chewing tobacco Smoking risk assessment performed?: Yes Alcohol Intake: current Alcohol Intake frequency: 3 or more drinks per day Alcohol type: beer Drug use: Never Substance use type: does not use Adopted: No Caregiver/Support person: No Foster care: No Household members: spouse Housing: house Number of Children: 3 Do you need help understanding health information?: Rarely 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, 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 Sexually active: Yes Do you think of yourself as: straight/heterosexual Current gender identity: male What is your relationship status?: Panel score (0-1 are the most socially isolated patients): 1 What type of physical activity do you participate in: walking Duration: 45-60 minutes/day Frequency: daily Do you feel safe at home: Yes Do you feel safe in your relationship?: Yes Additional Social history: unable to answer [facility](Care Management) Screening Will the Patient Participate in the Screening?: Yes Do you worry about having a steady place to live?: no In the past 12 months, have you had to go without electric, gas, oil or water in your home?: no Have you or anyone in your house had to go without enough food to eat?: no Has lack of transportation kept you from medical appointments or from doing things needed for daily living?: no Has anyone in your support network made you feel unsafe for any reason?: no
[2024-01-28] MEDS: ACETAMINOPHEN 1,000 MG/100 ML BTL 400 MG IVPB ×2 (10:41→17:28)
[2024-01-28] MEDS: PIPERACILLIN/TAZO 3.375 GM in Normal Saline 50 ML IVPB ×3 (10:41→21:15)
[2024-01-28] MEDS: Lactated Ringers 1,000 ML 75 ML IV (13:08)
[2024-01-28] MEDS: MORPHine 2 MG/ML SYR (23:47)
[2024-01-29] VITALS (16 sets, daily range): BP systolic 114–138; BP diastolic 64–84; PULSE 73–92; RESP 15–28; TEMP 36.6–38.5; O2SAT 93–99; BMI 27.1
[2024-01-29] MEDS: Lactated Ringers 1,000 ML 75 ML IV ×2 (01:26→15:03)
[2024-01-29] MEDS: ACETAMINOPHEN 1,000 MG/100 ML BTL 400 MG IVPB ×3 (01:26→17:25)
[2024-01-29] MEDS: PIPERACILLIN/TAZO 3.375 GM in Normal Saline 50 ML IVPB ×4 (03:59→22:57)
[2024-01-29] MEDS: Normal Saline Flush 10 ML SYR IVP ×3 (03:59→09:47)
[2024-01-29] MEDS: Indocyanine green 25 MG VIAL 5 MG IVP (03:59)
[2024-01-29 07:06] LABS: Abs Immature Grans 0.05 10^3/uL (0.0-0.06); Absolute Basophil Count 0.04 10^3/uL (0.0-0.2); Absolute Eosinophil Count 0.04 10^3/uL (0.0-0.7); Absolute Lymphocyte Count 3.38 10^3/uL (1.2-3.4); Absolute Monocyte Count 0.22 10^3/uL (0.1-0.8); Absolute Neutrophil Count 6.24 10^3/uL (1.2-6.7); Basophils % 0.4; Eosinophils % 0.4; HCT 38.7 % (40.0-50.0); HGB 13.2 g/dL (13.5-17.5); Immature Grans % 0.5; Lymphocytes % 33.9; MCH 30.6 pg (27.0-33.0); MCHC 34.1 % (32.0-36.0); MCV 90 fL (80-95); MPV 9.7 fL (8.0-11.0); Monocytes % 2.2; Neutrophils % 62.6; Platelet Count 176 10^3/uL (130-400); RBC 4.32 10^6/uL (4.36-5.78); RDW 13.2 % (11.8-14.1); RDW-SD 43.4 fL; WBC 9.97 10^3/uL (4.4-10.8)
[2024-01-29 07:22] LABS: ALT 185 U/L (16-63); AST 99 U/L (15-37); Albumin 2.5 g/dL (3.4-5.0); Alkaline Phosphatase 162 U/L (46-116); Anion Gap 8.5 mmol/L (3-11); BUN 14 mg/dL (7-18); Bilirubin, Total 4.4 mg/dL (0.2-1.0); CO2 26.5 mmol/L (21.0-32.0); CREATININE 1.4 mg/dL (0.70-1.30); Calcium 8.6 mg/dL (8.5-10.1); Chloride 103 mmol/L (98-107); Estimated GFR 54.07 (mL/min/1.73m2); Glucose 97 mg/dL (74-106); Lipase 38 U/L (16-77); Potassium 3.7 mmol/L (3.5-5.1); Sodium 138 mmol/L (136-145); Total Protein 6.4 g/dL (6.4-8.2)
[2024-01-29] MEDS: MORPHine 2 MG/ML SYR 4 MG IVP ×2 (07:32→17:25)
--- NOTE | 2024-01-29 08:45 | CMPROGNOTE_ITS ---
Date of service: 01/29/24 Care Management Progress Note Progress Note Text Progress Note Text: S/O: Bernard was lying in bed with Laury bedside when talking with CM. Laury reported she had just gotten to the facility with knowing Bernard would be in having his surgery. She reports he is far more calm and foggy than normal with having just had surgery. Laury explained Bernard had a two for surgery as a hernia was detected during surgery. CM completed IMM form with Pt. CM following. A: Bernard is a 68 year old man admitted to [facility] 01/28/24 for acute cholecystitis. P: Surgical intervention in the OR is planned for tomorrow. Anticipate, Bernard will discharge home when medically ready. He will follow up with community providers and his discharge plan of care as instructed. will provider transportation. CM will continue to follow. [facility](Care Management) Screening Will the Patient Participate in the Screening?: Yes Do you worry about having a steady place to live?: no In the past 12 months, have you had to go without electric, gas, oil or water in your home?: no Have you or anyone in your house had to go without enough food to eat?: no Has lack of transportation kept you from medical appointments or from doing things needed for daily living?: no Has anyone in your support network made you feel unsafe for any reason?: no
--- NOTE | 2024-01-29 11:19 | ANES.PREOP_ITS ---
General Info Date of Service Date Performed: 01/29/24 Height: 5 ft 11 in Weight: 88.3 kg Body Mass Index (BMI): 27.1 Surgical Procedure: Operation Date: 01/29/24 11:55 Proposed Procedure Side Surgeon p Cholecystectomy Laparoscopic Angela Rutledge, Meds Allergies and Home Medications Allergies Allergy/AdvReac Type Severity Reaction Status Date / Time amoxicillin Allergy Unknown Verified 07/13/20 10:04 Home Medication Medication Instructions Recorded Unknown [No Known Home Meds] 07/13/20 Current Visit Medications: Current Medications Generic Name Dose Route Start Last Admin Trade Name Freq PRN Reason Stop Dose Admin Piperacillin Sod/Tazobactam 50 mls @ 100 mls/hr 01/28/24 10:00 01/29/24 10:14 Sod 3.375 gm/ Sodium Chloride IVPB Infused Q6H CAT Infusion Acetaminophen 1,000 mg in 100 mls @ 400 mls/hr 01/28/24 10:00 01/29/24 09:28 Ofirmev IVPB Infused Q8H CAT Infusion Ringer's Solution 1,000 mls @ 75 mls/hr 01/28/24 12:15 01/29/24 01:26 IV 75 mls/hr INFUSION CAT Administration Sodium Chloride 500 mls @ 0 mls/hr 01/28/24 17:15 Saline 500ml Bag IV DIRECTED PRN As Directed IV Miscellaneous Supplies 1 each 01/28/24 17:15 Iv Access IV DIRECTED CAT Indocyanine Green 5 mg 01/29/24 04:00 01/29/24 03:59 Indocyanine Green 25 Mg Vial IVP 01/29/24 16:00 5 mg TODAY@0400 CAT Administration Morphine Sulfate 4 mg 01/28/24 09:04 01/29/24 07:32 Morphine 2 Mg/Ml Syr IVP 4 mg Q1H PRN PRN Administration Ondansetron HCl 4 mg 01/28/24 09:04 Ondansetron 4 Mg/2 Ml Vial IVP Q4H PRN PRN Sodium Chloride 0 ml 01/28/24 17:15 01/29/24 09:47 Normal Saline Flush 10 Ml Syr IVP 10 ml PRN PRN Administration PFSH Active Problems Active Problems: Problem Status Onset Code Left shoulder pain M25.512 Chewing tobacco dependence F17.220 Acute cholecystitis K81.0 Diverticular disease of large intestine K57.30 Colon cancer screening Z12.11 Medical History Medical History Kidney stones 1977 and 1986 Surgical History Surgical History History of tracheostomy History of colonoscopy H/O knee surgery History of hernia repair (~12/28/10) [facility] [place] Tobacco Smoking/Tobacco Use Status: Current every day Tobacco Type: smokeless tobacco Smokeless tobacco user: chewing tobacco Alcohol Alcohol Intake: current Alcohol intake frequency: 3 or more drinks per day Alcohol type: beer Substance Use Substance use: Never Substance use type: does not use Vital Signs and Lab Results Vital Signs Most Recent Vital Signs in EMR: Most Recent Vital Signs Temp Pulse Resp BP Pulse Ox 37.5 C 92 H 16 125/76 95 01/29/24 11:06 01/29/24 11:06 01/29/24 11:06 01/29/24 11:06 01/29/24 11:06 Lab Results 01/29/24 06:23 01/29/24 06:23 Blood Type / Crossmatch: 2 Patient ABO/Rh B Positive 01/28/24 Antibody Screen NEGATIVE 01/28/24 Complete Blood Count: 2 White Blood Count 9.97 10^3/uL (4.4-10.8) 01/29/24 06:23 Red Blood Count 4.32 10^6/uL (4.36-5.78) L 01/29/24 06:23 Hemoglobin 13.2 g/dL (13.5-17.5) L 01/29/24 06:23 Hematocrit 38.7 % (40.0-50.0) L 01/29/24 06:23 Platelet Count 176 10^3/uL (130-400) 01/29/24 06:23 Complete Metabolic Panel: 2 Sodium 138 mmol/L (136-145) 01/29/24 06:23 Potassium 3.7 mmol/L (3.5-5.1) 01/29/24 06:23 Chloride 103 mmol/L (98-107) 01/29/24 06:23 Carbon Dioxide 26.5 mmol/L (21.0-32.0) 01/29/24 06:23 BUN 14 mg/dL (7-18) 01/29/24 06:23 Creatinine 1.4 mg/dL (0.70-1.30) H 01/29/24 06:23 Est GFR (CKD-EPI 2020) 54.07 (mL/min/1.73m2) 01/29/24 06:23 Calcium 8.6 mg/dL (8.5-10.1) 01/29/24 06:23 Albumin 2.5 g/dL (3.4-5.0) L 01/29/24 06:23 Glucose 97 mg/dL (74-106) 01/29/24 06:23 Liver Function Panel: 2 Alanine Aminotransferase (ALT/SGPT) 185 U/L (16-63) H 01/29/24 06:23 Aspartate Amino Transf (AST/SGOT) 99 U/L (15-37) H 01/29/24 06: 23 Coagulation Panel: 2 No Data to Display Cardiac Panel: 2 Troponin I < 50 ng/L (< or =60) 01/28/24 NT-Pro-B Natriuret Pep 52 pg/mL (<300) 01/28/24 Arterial Blood Gas: 2 No Data to Display Venous Blood Gas: 2 No Data to Display Pancreas Panel: 2 Lipase 38 U/L (16-77) 01/29/24 06:23 Thyroid Panel: 2 No Data to Display Infectious Disease: 2 No Data to Display Blood Cultures: 2 No Data to Display Toxicology Panel: 2 No Data to Display Imaging and Studies Imaging and Studies Study information below may be from another EMR and interpreted by another provider. Please see original notes in EMR for more complete details. EKG Summary: DATE/TIME OF SERVICE: 01/28/24 0105 : 1955 PERFORMING LOCATION: [place] APPROVED REPORT Exam: Resting ECG Reason for Exam: chest paijn Patient Location: E HR:85 bpm ECG Measurements Heart Rate 85 AXIS MA 192 P 55 QRSd 82 QRS 52 QT 373 T27 QTc 443 Conclusion Sinus rhythm...normal P axis, V-rate 60- [address] segment or t wave abnormalities to suggest occlusive mi Anesthesia Assessment and Plan Anesthesia History Personal History: No History of Anesthesia Complications Family History: No Family History of Anesthesia Complications Exercise Tolerance Exercise Tolerance: Metabolic Equivalents>4 Pertinent Negatives Pertinent Negatives: No Symptoms of GERD, No Major Cardiovascular Symptoms or Complaints, No Major Pulmonary Symptoms or Complaints and No History of CVA/TIA Cardiac & Pulmonary Exam Cardiac Exam: Normal S1/S2 Heart Sounds Pulmonary Exam: Clear Bilateral Breath Sounds Implantable Cardiac Device Does patient have a Pacemaker or an ICD?: No Airway Exam Known Difficult Airway: No Mallampati Class: 3 Mouth Opening: Normal (> 3cm) Thyromental Distance: Greater than 3 cm Neck Range of Motion: Full ROM Neck Circumference: Normal Teeth Condition: Loose or Chipped (multiple missing molars; L upper front teeth with some chips ) ASA Classification ASA Score: ASA 2 Emergency Case?: No NPO Status NPO Status: NPO Clears >2 hours, Solids >8 hours Anesthesia Plan Resuscitation Status: Full Code Anesthesia Technique: General Anesthesia Airway Planned: Endotracheal Tube Monitors Used: Standard Monitors and SedLine
[2024-01-29] MEDS: Lactated Ringers 1,000 ML 50 ML IV ×2 (12:05→13:54)
--- NOTE | 2024-01-29 12:33 | GB_PTH ---
PATIENT: Bernard Blount LOC: U#:[id number] AGE/SX: 68/M ROOM: [facility] RE01/28/[address]: Angela Rutledge : 1955 BED: A DIS: 01/31/2024 SPEC #: [id number] RECD: 01/29/24 15:53 STATUS: SAVI REQ #: [id number] AZEEM: 01/29/24 12:[address]: Angela Rutledge DEPT: Surgical Specimen RECD BY: Harleen Sandoval ENTERED: 01/29/24 15:53 SP TYPE: GB OTHR DR: Phil Ventura DO Tissues: 1 - GALLBLADDER Procedures: GROSS AND MICRO LEVEL 3 Comments: [id number]
--- NOTE | 2024-01-29 13:59 | ROE_ITS ---
Date of service: 01/29/24 Time of Service: 13:59 Operative Note Operative Note DATE OF PROCEDURE: 01/29/24 PRE-OP DIAGNOSIS: Acute cholecystitis POST-OP DIAGNOSIS: same PROCEDURE: Laparoscopic cholecystectomy SURGEON: Angela Avilez RESIDENT CARE DIRECTOR: Sil Dela Cruz ANESTHESIA TYPE: Local By Surgeon and General LMA/ETT Refer to Anesthesia Record ESTIMATED BLOOD LOSS: 25 PATHOLOGY: other COMPLICATIONS: None Patient was transported to: PACU Patient's condition: stable Procedure Description: Pt is here today for laparoscopic cholecystectomy for acute cholecystitis. Informed consent was obtained, explaining risks and benefits of the procedure including but not limited to bleeding, infection, pneumonia, blood clots, po ssible damage to bowel, bladder, blood vessels, bile ducts, possible open procedure, complications of general anesthesia and other unforetold complications. PROCEDURE: The patient agrees and is brought to the operative room suite and placed in supine position. Pt receives IV ICG preOp to aid w/ bile duct visualization.? Anesthesia was administered per the Department of Anesthesia. The patient did receive IV antibiotics. NG tube and Adame catheter are placed. The patient was prepped and draped in the usual sterile fashion using DuraPrep scrub solution. Pause for the cause was done. 20 mL of 1% buffered lidocaine was used for local anesthetization. The patient does have a small umbilical hernia. A incision was made in the umbilicus. Mezzo used to dissect down to the fascial defect. F ingers placed into the abdomen and swept. There are no adhesions. A #10 port is inserted. The camera was inserted through the port and shows no damage to underlying structures. A 10 mm port was then placed in the epigastric position under direct visualization following creation of local field blocks as well as two 5 mm ports in the right upper quadrant. The camera was moved to one of the secondary ports so we could view the umbilical trocar site, and there is are no hernias or adhesions. The omentum is adhered up to the gallbladder. This is taken down bluntly. The gallbladder is very distended. Bile was aspirated from the gallbladder and sent for culture. It is purulent. The gallbladder is edematous and inflamed. The gallbladder fundus was grasped and retracted towards the right shoulder. Infundibulum was grasped and retracted laterally. The hepat-duodenal ligament is entered. Fortunately this is still soft and easily peels apart. The cystic duct and artery are dissected out and the most inferior portion of the gallbladder plate is removed from the liver and the critical view of safety was obtained after clearing away all fatty material. Endo Clips were placed across the duct and artery and these structures are divided. The remainder of the gallbladder was excised from the liver bed. The gallbladder was placed in a bag and brought out. Examination of the gallbladder shows indeed the cystic duct and artery to have been divided. The remainder of the abdomen was copiously irrigated with a liter of saline. All saline is removed. There is no bleeding or bile leakage from the liver bed or the clips sites. An EndoClose needle was used to close the 10 mm port site with an 0 Vicryl. All ports and instruments are removed. SPonge and needle counts are correct. Pneumoperitoneum is evacuated and the port sites are monitored to make sure there is no bleeding at the time of desufflation. ??Port sites are irrigated. 15 Persian drain is placed through one of the 5 mm port sites. It is sewn in with nylon. The fascia under the umbilical port is closed with 0 Vicryl in an interrupted fashion. The skin is closed with 4-0 Monocryl in a running subcuticular fashion. Skin glue sterile dressings are applied. The patient tolerated the procedure well without complications, transferred to the recovery room in stable condition. ANGELA AVILEZ, DO
--- NOTE | 2024-01-29 14:01 | W.BRIEF ---
Date of service: 01/29/24 Time of Service: 14:01 Brief Operative Note Procedure/Pre & Post Op Diagnoses/Consulting Group Analyst: Operation Date: 01/29/24 11:55 Actual Procedures p Cholecystectomy Laparoscopic W/ incidental umbilical hernia repair (Not Applicable) - Angela Rutledge DO Pre-Op Diagnosis: Acute cholecystitis Post-Op Diagnosis: Acute cholecystitis Case Staff Physician Consulting Group Analyst: Sil Dela Cruz Anesthesia Anesthesia Type: Local By Surgeon and General LMA/ETT Estimated Blood Loss Output, Estimated Blood Loss 50 Amount Specimen/Culture Specimen(s): 1. GALLBLADDER 2. BILE Culture(s): Aerobic anaerobic culture of bile Complications Complications: None
--- NOTE | 2024-01-29 15:19 | W.ANESPOSTOP ---
Postoperative Evaluation Date, Time and Location Date Performed: 01/29/24 Time Performed: 14:40 Patient Location: PACU Vital Signs Most Recent Imported Vital Signs: Most Recent Vital Signs Temp Pulse Resp BP Pulse Ox 37.7 C H 83 18 132/74 94 01/29/24 15:08 01/29/24 15:08 01/29/24 15:08 01/29/24 15:08 01/29/24 15:08 Pain Score Most Recent Pain Score: Most Recent Pain Score Pain Level [Right Upper 4 01/29/24 08:59 Abdomen] Pain Level 3 01/29/24 15:08 Assessment Mental Status: Awake (Alert & Oriented to Patient Baseline) Airway and Respiratory Function: Patent airway with normal (patient baseline) respiratory exam Cardiovascular Function: Hemodynamically Stable Hydration Status: Adequately Hydrated Nausea & Vomiting: No Nausea or Vomiting Pain: Pain is tolerable per patient Peripheral Nerve Block: Patient did not receive a nerve block
--- NOTE | 2024-01-29 16:25 | W.PM.PROGNOT ---
Date of Service Date of service: 01/29/24 Time of Service: 16:25 Assessment and Plan Assessment and plan (1) Acute cholecystitis: Status: Acute Assessment and plan: Suppurative (2) Chewing tobacco dependence: Status: Acute Subjective Subjective Interval history since last seen: The patient is doing well post-op. Their pain is well controlled. They are having no nausea or vomiting. The pt is not having any chest pain or SOB, productive cough; no calf pain or swelling. The pt is making good urine. The pt pain is adequately controlled. The case was discussed with nursing and patient?s progress reviewed. All of the pt's home medications were addressed and adjusted accordingly for their oral intact status. HEENT: no jaundice. no eye pain/drainage/redness/swelling. Mild sore throat Cardio- NSR no chest pain, BP stable. Pulm: no sob or productive cough. no hemoptysis Incision- clean/dry. Dressing intact no excessive bleeding or drainage Pt has severe purulent cholecystitis. Will plan on keeping him in until at least for IV [id number]-Zosyn. Trend WBC. Drain should be able to come out at time of d/c. I discussed with the patient and/or there family about the findings in surgery and the pt's progress. We reviewed expectations for progress in the hospital; what the pt could expect for recovery time and length of stay. We discussed the importance of walking and pulmonary toilet to avoid blood clots and pneumonia. Continue current plans for pulmonary toilet, GI and DVT prophylaxis. We shall continue the current plan for pain management as it is at an appropriate level, and working well for the pt. Appropriate measures will be taken for constipation prevention, and this was also reviewed with the pt. The wound care plan was reviewed with nursing as well. see orders Objective Last Vital Signs Temp 37.8 C H 01/29/24 16:03 Pulse 81 01/29/24 16:03 Resp 16 01/29/24 16:03 BP 138/76 01/29/24 16:03 Pulse Ox 94 01/29/24 16:03 Laboratory Results - last 24 hr 01/29/24 06:23 WBC 9.97 RBC 4.32 L Hgb 13.2 L Hct 38.7 L MCV 90 MCH 30.6 MCHC 34.1 RDW 13.2 Plt Count 176 MPV 9.7 Immature Gran % 0.5 Neutrophils % 62.6 Lymphocytes % 33.9 Monocytes % 2.2 Eosinophils % 0.4 Basophils % 0.4 Nucleated RBC % 0.0 Absolute Neutrophils 6.24 Absolute Lymphocytes 3.38 Absolute Monocytes 0.22 Absolute Eosinophils 0.04 Absolute Basophils 0.04 Sodium 138 Potassium 3.7 Chloride 103 Carbon Dioxide 26.5 Anion Gap 8.5 BUN 14 Creatinine 1.4 H Est GFR (CKD-EPI 2020) 54.07 Glucose 97 Calcium 8.6 Total Bilirubin 4.4 H AST 99 H ALT 185 H Alkaline Phosphatase 162 H Total Protein 6.4 Albumin 2.5 L Lipase 38 PAWSS Have you Been Recently Intoxicated or Drunk Within the Last 30 days?: No Have you Ever Experienced Previous Episodes of Alcohol Withdrawal?: No Have you ever Experienced Withdrawal Seizures?: No Have you ever Experienced Delirium Tremens(DT)s?: No Have you ever undergone Alcohol Rehabilitation Treatment (i.e, inpt ot outpatient treatment programs)?: No Have you ever Experienced Blackouts?: No Have you ever Combined Alcohol with other Downers within the last 90 days?: No Have you ever Combined Alcohol with any other Substance of Abuse during the last 90 days?: No Positive Blood Alcohol level on Presentation? [PCS.BAL]: No Evidence of Increased Autonomic Activity (i.e. HR>120, tremor, sweating, agitation, nausea)?: No Result: 0 Time Spent with Patient Time Spent with Patient: <25 minutes Time was spent: preparing to see the patient(eg.review tests), ordering medications,tests, procedures, referring, communicating with other health resident care director, counseling the patient and care coordination
[2024-01-30 00:06] VITALS: BP 119/79; PULSE 70; RESP 17; TEMP 36.8; O2SAT 96
[2024-01-30] MEDS: ACETAMINOPHEN 1,000 MG/100 ML BTL 400 MG IVPB ×3 (02:27→17:53)
[2024-01-30] MEDS: Lactated Ringers 1,000 ML 75 ML IV (02:29)
[2024-01-30] MEDS: traMADol 50 MG TAB PO (02:34)
[2024-01-30 02:39] VITALS: BP 135/92; PULSE 62; RESP 18; TEMP 37.1; O2SAT 94
[2024-01-30] MEDS: PIPERACILLIN/TAZO 3.375 GM in Normal Saline 50 ML IVPB ×4 (04:20→22:37)
[2024-01-30 06:34] LABS: Abs Immature Grans 0.05 10^3/uL (0.0-0.06); Absolute Basophil Count 0.04 10^3/uL (0.0-0.2); Absolute Eosinophil Count 0.19 10^3/uL (0.0-0.7); Absolute Lymphocyte Count 3.19 10^3/uL (1.2-3.4); Absolute Neutrophil Count 7.45 10^3/uL (1.2-6.7); Basophils % 0.4; Eosinophils % 1.7; HCT 34.2 % (40.0-50.0); HGB 11.9 g/dL (13.5-17.5); Immature Grans % 0.4; Lymphocytes % 28.4; MCH 31.2 pg (27.0-33.0); MCHC 34.8 % (32.0-36.0); MCV 90 fL (80-95); MPV 9.7 fL (8.0-11.0); Monocytes % 2.7; Neutrophils % 66.4; Platelet Count 199 10^3/uL (130-400); RBC 3.82 10^6/uL (4.36-5.78); RDW 13.6 % (11.8-14.1); RDW-SD 44.4 fL; WBC 11.22 10^3/uL (4.4-10.8)
[2024-01-30 07:30] VITALS: BP 123/75; PULSE 65; RESP 17; TEMP 36.8; O2SAT 93
[2024-01-30 08:28] LABS: ALT 136 U/L (16-63); AST 52 U/L (15-37); Albumin 2.2 g/dL (3.4-5.0); Alkaline Phosphatase 121 U/L (46-116); Anion Gap 7.9 mmol/L (3-11); BUN 19 mg/dL (7-18); Bilirubin, Total 1.1 mg/dL (0.2-1.0); CO2 25.1 mmol/L (21.0-32.0); CREATININE 1.2 mg/dL (0.70-1.30); Calcium 8.7 mg/dL (8.5-10.1); Chloride 104 mmol/L (98-107); Estimated GFR 65.06 (mL/min/1.73m2); Glucose 142 mg/dL (74-106); Sodium 137 mmol/L (136-145); Total Protein 6.4 g/dL (6.4-8.2)
[2024-01-30] MEDS: Normal Saline Flush 10 ML SYR IVP ×2 (09:36→16:11)
--- NOTE | 2024-01-30 09:46 | W.PM.PROGNOT ---
Date of Service Date of service: 01/30/24 Time of Service: 09:46 Assessment and Plan Assessment and plan (1) Acute cholecystitis: Status: Acute Assessment and plan: POD #1 s/p laproscopic cholectystectomy with drain placement. Pain is well controlled at this time. No fevers, WBC slightly elevated which is to be anticipated today. Tolerating clear liquid diet, will advance as tolerated to regular low fat diet. SCOTT drain with serosanginous drainage Bilirubin and LFTs are elevated, however are trending downward at this time. Encouraged activity OOB, ambulation and sitting in the chair. Patient will stay another night to continue IV antibiotics and to continue to monitor pain control and labs. (2) Chewing tobacco dependence: Status: Acute Subjective Subjective Interval history since last seen: Arrive with the patient resting in bed. He describes his pain is currently well managed and is only bothersome with movement. He describes tolerating a clear liquid diet without any nausea, vomiting or abdominal pain. Exam Const General: cooperative, healthy appearing and comfortable Orientation: alert and oriented x3 Resp Effort & Inspection: normal respiratory effort, no audible wheezes and no cough GI Inspection: normal to inspection Palpation: soft, no guarding and tender Other: SCOTT drain in place with serosanginous drainage. Objective Last Vital Signs Temp 36.8 C 01/30/24 07:30 Pulse 65 01/30/24 07:30 Resp 17 01/30/24 07:30 BP 123/75 01/30/24 07:30 Pulse Ox 93 01/30/24 07:30 Laboratory Results - last 24 hr 01/30/24 06:20 WBC 11.22 H RBC 3.82 L Hgb 11.9 L Hct 34.2 L MCV 90 MCH 31.2 MCHC 34.8 RDW 13.6 Plt Count 199 MPV 9.7 Immature Gran % 0.4 Neutrophils % 66.4 Lymphocytes % 28.4 Monocytes % 2.7 Eosinophils % 1.7 Basophils % 0.4 Nucleated RBC % 0.0 Absolute Neutrophils 7.45 H Absolute Lymphocytes 3.19 Absolute Monocytes 0.30 Absolute Eosinophils 0.19 Absolute Basophils 0.04 Sodium 137 Potassium 4.0 Chloride 104 Carbon Dioxide 25.1 Anion Gap 7.9 BUN 19 H Creatinine 1.2 Est GFR (CKD-EPI 2020) 65.06 Glucose 142 H Calcium 8.7 Total Bilirubin 1.1 H AST 52 H ALT 136 H Alkaline Phosphatase 121 H Total Protein 6.4 Albumin 2.2 L PAWSS Have you Been Recently Intoxicated or Drunk Within the Last 30 days?: No Have you Ever Experienced Previous Episodes of Alcohol Withdrawal?: No Have you ever Experienced Withdrawal Seizures?: No Have you ever Experienced Delirium Tremens(DT)s?: No Have you ever undergone Alcohol Rehabilitation Treatment (i.e, inpt ot outpatient treatment programs)?: No Have you ever Experienced Blackouts?: No Have you ever Combined Alcohol with other Downers within the last 90 days?: No Have you ever Combined Alcohol with any other Substance of Abuse during the last 90 days?: No Positive Blood Alcohol level on Presentation? [PCS.BAL]: No Evidence of Increased Autonomic Activity (i.e. HR>120, tremor, sweating, agitation, nausea)?: No Result: 0 Time Spent with Patient Time Spent with Patient: <25 minutes Time was spent: preparing to see the patient(eg.review tests), obtaining and/or reviewing separately otained hiistory and counseling the patient
--- NOTE | 2024-01-30 10:10 | CMPROGNOTE_ITS ---
Date of service: 01/30/24 Care Management Progress Note Progress Note Text Progress Note Text: S/O: A: Bernard is a 68 year old man admitted to [facility] 01/28/24 for acute cholecystitis. P: Surgical intervention in the OR is planned for tomorrow. Anticipate, Bernard will discharge home when medically ready. He will follow up with community providers and his discharge plan of care as instructed. will provider transportation. CM will continue to follow. SDOH(Care Management) Screening Will the Patient Participate in the Screening?: Yes Do you worry about having a steady place to live?: no In the past 12 months, have you had to go without electric, gas, oil or water in your home?: no Have you or anyone in your house had to go without enough food to eat?: no Has lack of transportation kept you from medical appointments or from doing things needed for daily living?: no Has anyone in your support network made you feel unsafe for any reason?: no
[2024-01-30] MEDS: Heparin 5,000 UNITS/ML VIAL 5000 UNITS SC ×2 (10:20→22:42)
[2024-01-30 11:21] VITALS: BP 132/81; PULSE 61; RESP 17; TEMP 36.9; O2SAT 95
--- NOTE | 2024-01-30 14:01 | PDOC.CMPRO ---
Date of service: 01/30/24 Time of Service: 14:01 Care Management Progress Note Progress Note Text Progress Note Text: S/O: Bernard was standing up next to his bed visiting with his when CM met with him. He is waiting for a nurse to disconnect him from his IV pole so he can ambulate further. Per pt, he is getting better every day and shares that his diet is getting advanced soon and he hopes he can go home tomorrow. is concerned about his need for IV medication after discharge, CM discussed the transition to PO medications and she feels more confident with him coming home. CM following. A: Bernard is a 68 year old man admitted to [facility] 01/28/24 for acute cholecystitis. P: Anticipate, Bernard will discharge home when medically ready. and be driven via private vehicle with . No new VNA services are anticipated at this time. Patient will follow up with community providers and his discharge plan of care as instructed. CM will continue to follow. SDOH(Care Management) Screening Will the Patient Participate in the Screening?: Yes Do you worry about having a steady place to live?: no In the past 12 months, have you had to go without electric, gas, oil or water in your home?: no Have you or anyone in your house had to go without enough food to eat?: no Has lack of transportation kept you from medical appointments or from doing things needed for daily living?: no Has anyone in your support network made you feel unsafe for any reason?: no
[2024-01-30 16:17] VITALS: BP 123/83; PULSE 68; RESP 16; TEMP 37.2; O2SAT 95
[2024-01-30] MEDS: Normal Saline Flush 10 ML SYR (18:15)
[2024-01-30 22:56] VITALS: BP 119/71; PULSE 63; RESP 18; O2SAT 94
[2024-01-31] MEDS: ACETAMINOPHEN 1,000 MG/100 ML BTL 400 MG IVPB ×2 (02:02→09:48)
[2024-01-31] MEDS: Normal Saline Flush 10 ML SYR IVP ×2 (02:06→11:53)
[2024-01-31 02:10] VITALS: BP 127/74; PULSE 58; RESP 14; TEMP 36.6; O2SAT 95
[2024-01-31] MEDS: PIPERACILLIN/TAZO 3.375 GM in Normal Saline 50 ML IVPB ×2 (04:15→09:53)
[2024-01-31 06:29] LABS: HCT 35.7 % (40.0-50.0); HGB 11.9 g/dL (13.5-17.5); MCH 30.2 pg (27.0-33.0); MCHC 33.3 % (32.0-36.0); MCV 91 fL (80-95); MPV 9.7 fL (8.0-11.0); Platelet Count 215 10^3/uL (130-400); RBC 3.94 10^6/uL (4.36-5.78); RDW 13.8 % (11.8-14.1); RDW-SD 45.7 fL; WBC 9.92 10^3/uL (4.4-10.8)
--- NOTE | 2024-01-31 07:30 | W.PM.PROGNOT ---
Date of Service Date of service: 01/31/24 Time of Service: 07:30 Assessment and Plan Assessment and plan (1) Acute cholecystitis: Status: Acute Assessment and plan: POD #2 s/p laproscopic cholectystectomy with drain placement. Pain is well controlled at this time. No fevers, WBC normalized today. Tolerating regular diet SCOTT drain with serosanginous drainage; this will remain in place at D/C. Bilirubin and LFTs continue to trend downward. Encouraged activity OOB, ambulation and sitting in the chair. D/C home later today. (2) Chewing tobacco dependence: Status: Acute Subjective Subjective Interval history since last seen: Arrive with the patient feeling well. He states his mobility has improved significantly and is only uncomfortable with sitting up at this time. He has been ambulating in the hallway, urinating and passing flatus. Exam Const General: cooperative, healthy appearing and comfortable Orientation: alert and oriented x3 Resp Effort & Inspection: normal respiratory effort, no audible wheezes and no cough GI Inspection: normal to inspection Palpation: soft, no guarding and tender Other: serosanginous drainage in the SCOTT drain Objective Last Vital Signs Temp 36.6 C 01/31/24 02:10 Pulse 58 L 01/31/24 02:10 Resp 14 01/31/24 02:10 BP 127/74 01/31/24 02:10 Pulse Ox 95 01/31/24 02:10 Laboratory Results - last 24 hr 01/30/24 01/31/24 06:20 06:18 WBC 9.92 RBC 3.94 L Hgb 11.9 L Hct 35.7 L MCV 91 MCH 30.2 MCHC 33.3 RDW 13.8 Plt Count 215 MPV 9.7 Sodium 137 Potassium 4.0 Chloride 104 Carbon Dioxide 25.1 Anion Gap 7.9 BUN 19 H Creatinine 1.2 Est GFR (CKD-EPI 2020) 65.06 Glucose 142 H Calcium 8.7 Total Bilirubin 1.1 H AST 52 H ALT 136 H Alkaline Phosphatase 121 H Total Protein 6.4 Albumin 2.2 L PAWSS Have you Been Recently Intoxicated or Drunk Within the Last 30 days?: No Have you Ever Experienced Previous Episodes of Alcohol Withdrawal?: No Have you ever Experienced Withdrawal Seizures?: No Have you ever Experienced Delirium Tremens(DT)s?: No Have you ever undergone Alcohol Rehabilitation Treatment (i.e, inpt ot outpatient treatment programs)?: No Have you ever Experienced Blackouts?: No Have you ever Combined Alcohol with other Downers within the last 90 days?: No Have you ever Combined Alcohol with any other Substance of Abuse during the last 90 days?: No Positive Blood Alcohol level on Presentation? [PCS.BAL]: No Evidence of Increased Autonomic Activity (i.e. HR>120, tremor, sweating, agitation, nausea)?: No Result: 0 Time Spent with Patient Time Spent with Patient: <25 minutes Time was spent: preparing to see the patient(eg.review tests), obtaining and/or reviewing separately otained hiistory and counseling the patient
[2024-01-31 07:36] VITALS: BP 145/81; PULSE 54; RESP 16; TEMP 36.7; O2SAT 95
--- NOTE | 2024-01-31 07:37 | DSE_ITS ---
Date of service: 01/31/24 Time of Service: 07:37 DS: Diagnosis Discharge Diagnosis (1) Acute cholecystitis: Status: Acute (2) Chewing tobacco dependence: Status: Acute Discharge Plan Disposition Patient Disposition: Home Condition: Improving Discharge Details Reason For Visit: acute Cholecystitits Admit Date/Time: 01/28/24 02:58 Admit Provider: Angela Rutledge Attending Provider: Angela Rutledge Primary Care Provider: Phil Ventura [facility] Course Hospital Course: 68 y/o male presented to the ER with a 3 day hx of right sided abdominal pain was found to have acute cholecystitis. He was admitted and treated with IV abx and under went laparoscopic cholecystectomy with drain placement. Post-op his pain was well controlled. He was slowly advanced to a low fat diet, which he tolerated well. His bilirubin and LFTs trended downward over the next 2 days post op. He will d/c home with the drain in place. He will need to follow up in the office for labs and post-op visit early next week. Home Meds and New Rx's Prescriptions: New metronidazole 500 mg tablet 500 mg PO BID 3 Days Qty: 6 0RF ciprofloxacin HCl 750 mg tablet 750 mg PO BID 3 Days Qty: 6 0RF tramadol 50 mg tablet 50 mg PO Q8H PRNQty: 12 0RF Rx Instructions: Take 1 tablet by mouth if needed up to every 8 hours for severe pain. Discharge Instructions Instructions: Cholecystitis (DC), Laparoscopic Cholecystectomy (DC) Additional Instructions: Care after Gallbladder Surgery -Pain control: ?For the first 72 hours after surgery, take you pain meds continuously and not just when you have pain.?? Alternate Tylenol 1000mg by mouth every 8 hours, and Ibuprofen 600mg every 6 hours.? Make sure you take ibuprofen with food and not on an empty stomach.? ??Use the tramadol for breakthrough pain- pain that is greater than a 7. ?- Use ICE! Ice really helps to keep the swelling down, and swelling causes pain. ??Twenty minutes on, and then off, continuously for the first 72hours.? After the first 72hrs, you can just use the Tylenol, ibuprofen, and ice, when you have pain.?? If you are taking narcotic pain medication, follow the instructions on the label and do not drive. Pain medications can make you very constipated. Make sure you are moving your bowels daily. If not, take Miralax, - Anesthesia makes you very constipated.? Take a dose of milk of magnesia the morning after surgery. ? Use an ice bag for the first 72 hours. This helps to decrease swelling, which causes pain. It is normal to be more sore/painful and swollen towards the end of the day and first thing in the morning. ? Gallbladder surgery can make you very nauseated; use Zofran for nausea, for the first 24 hours. The nausea generally stops after 24 hours. ? Use Miralax ?to prevent constipation (this is a particular side effect of pain medication and anesthesia). Do not allow yourself to become constipated. ? Avoid fatty or greasy foods; introduce these slowly, with care, after about 1 month. High-fat foods include: ? Foods that are fried, like Slovak fries and potato chips ? High-fat meats, such as harris, bologna, sausage, ground beef, and ribs, pork products ? High-fat dairy products, such as cheese, ice cream, cream, whole milk, and sour cream ? Pizza ? Foods made with lard or butter ? Creamy soups or sauces ? Meat gravies ? Chocolate ? Oils, such as palm and coconut oil ? Skin of chicken or turkey ? Nuts and nut butters ? Avocadoes ? Start out eating very small, bland amounts of food. Do not take pain pills on an empty stomach. - You will notice purple discoloration around the incisions.? This is the ?skin glue?.? This will wear off on its own.? It is OK to shower after 24hrs.? You do not need to cover the incisions. -You should walk frequently, gradually, increasing the distance. You may climb stairs, just go slowly. ? Do not go swimming or sit in a hot tub for two weeks. ? There are no stitches to remove. ? Do not drive your car x72hrs and then only if you have no pain and can move freely. Do not drive if you are taking pain narcotic pain medications. ? You may resume sexual activity whenever pain and soreness subside, usually in 2 weeks. ? Do no lift anything over 5 lbs. for two weeks. ? You may return to work in one week, or when you feel able, provided you do not have to do any heavy lifting or prolonged standing. ? You should return to Dr. Rutledge?s office for a post-op appointment about two weeks after surgery. A follow-up should have been scheduled for you already.? If there is not, please call the [facility] at: [phone] to schedule an appointment. My Medications for pain and nausea are: Tylenol/ibuprofen ?and ultram- for severe pain ?and Zofran-nausea When to Call the Office: ? If the incision becomes red or swollen, or there is more than a little drainage from it. ? If you develop a temperature higher than 100.5 F. ? If your eyes turn yellow ? Vomiting and can?t keep fluids down Stand Alone Forms: Nursing Discharge Form Referrals: Angela Rutledge, [OSTEOPATHIC DOCTOR] - (02/03 @ 2:45pm) Activity:: No heavy lifting pushing Equipment/Supplies:: No Equipment Needed Diet:: Low Fat Discharge Orders Discharge Orders: Discharge Order (Routine); Ordered 01/31/24 Ordered By: Sil Dela Cruz DS: Summary Time Spent with Patient providing and/or coordinating discharge services: Less than 30 minutes Status at Discharge Functional status at discharge: independent ambulation Overall status at discharge: patient is back to baseline Mental Status: mental status grossly normal Speech and Movement: speech and movement normal Mood: congruent mood Affect: normal affect Quality:SDOH Health Related Social Needs: No Data to Display Exam Const General: cooperative, healthy appearing and comfortable Orientation: alert and oriented x3 Resp Effort & Inspection: normal respiratory effort, no audible wheezes and no cough GI Inspection: normal to inspection Palpation: soft, no guarding and tender Other: serosanginous drainage in the SCOTT drain Skin a fix over the incisions. Psych Mental Status: mental status grossly normal Speech and Movement: speech and movement normal Mood: congruent mood Affect: normal affect DS: Data Vitals/I&O Vitals and I&O: Vital Signs Temperature 36.6 C 01/31/24 02:10 Temperature Source Tympanic 01/31/24 02:10 Pulse 58 L 01/31/24 02:10 Pulse Rhythm Regular 01/31/24 02:00 Respiratory Rate 14 01/31/24 02:10 Respiratory Effort Normal 01/31/24 02:00 Respiratory Depth Normal 01/31/24 02:00 Respiratory Pattern Normal 01/31/24 02:00 Blood Pressure 127/74 01/31/24 02:10 Blood Pressure Position Supine 01/28/24 01:11 Pulse Oximetry 95 01/31/24 02:10 Respiratory End-tidal CO2 29 01/29/24 14:23 Oxygen Delivery Method Room Air 01/31/24 02:10 Oxygen Flow Rate 0 01/31/24 02:10 Pain Level 0 01/31/24 02:10 Comment 97.7 F 01/30/24 22:56 Intake & Output 01/30/24 01/31/24 01/31/24 18:59 06:59 18:59 Intake Total 900 / 1300 400 / 1300 Output Total 270 / 950 680 / 950 Balance 630 / 350 -280 / 350 Intake: IV 450 / 850 400 / 850 Oral 450 / 450 Output: Drainage 20 / 50 30 / 50 Right Upper Abdomen 20 / 50 30 / 50 Urine 250 / 900 650 / 900 Other: Urine Color Yellow Yellow Urine Appearance Clear Clear Comment Used the bathroom independently. LR at 75ml/hr Voiding Methods Urinal Urinal Data Completed and Pending Labs on day of discharge: Labs from last 24 hours 01/31/24 01/30/24 06:18 06:20 WBC 9.92 RBC 3.94 L Hgb 11.9 L Hct 35.7 L MCV 91 MCH 30.2 MCHC 33.3 RDW 13.8 Plt Count 215 MPV 9.7 Sodium 137 Potassium 4.0 Chloride 104 Carbon Dioxide 25.1 Anion Gap 7.9 BUN 19 H Creatinine 1.2 Est GFR (CKD-EPI 2020) 65.06 Glucose 142 H Calcium 8.7 Total Bilirubin 1.1 H AST 52 H ALT 136 H Alkaline Phosphatase 121 H Total Protein 6.4 Albumin 2.2 L 01/29/24 12:33 Gallbladder - Bile Anaerobic Culture - Pending Preliminary micro results at discharge 01/29/24 12:33 Body Fluid Culture - Preliminary Bile Enterococcus Species 01/29/24 12:33 Anaerobic Culture - Pending Gallbladder - Bile PFSH All Active Problems Left shoulder pain (Acute) Chewing tobacco dependence (Acute) Acute cholecystitis (Acute) Diverticular disease of large intestine (Acute) Colon cancer screening (Acute) Medical History Kidney stones 1977 and 1986 Surgical History (Updated 01/30/24 @ 07:44 by Juany Bond) History of laparoscopic cholecystectomy (~01/2024) History of tracheostomy History of colonoscopy H/O knee surgery History of hernia repair (~12/28/10) [facility] [place] Family History Father Lung cancer Hypertension Maternal Grandfather Lung cancer Mother Diabetes Social History Smoking/Tobacco Use Status: Current every day Tobacco Type: smokeless tobacco Smokeless tobacco user: chewing tobacco Smoking risk assessment performed?: Yes Alcohol Intake: current Alcohol Intake frequency: 3 or more drinks per day Alcohol type: beer Drug use: Never Substance use type: does not use Adopted: No Caregiver/Support person: No Foster care: No Household members: spouse Housing: house Number of Children: 3 Do you need help understanding health information?: Rarely 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, 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 Sexually active: Yes Do you think of yourself as: straight/heterosexual Current gender identity: male What is your relationship status?: Panel score (0-1 are the most socially isolated patients): 1 What type of physical activity do you participate in: walking Duration: 45-60 minutes/day Frequency: daily Do you feel safe at home: Yes Do you feel safe in your relationship?: Yes Additional Social history: unable to answer vladimir Time Spent with Patient Time Spent with Patient: <45 minutes Time was spent: preparing to see the patient(eg.review tests), obtaining and/or reviewing separately otained hiistory and counseling the patient
--- NOTE | 2024-01-31 08:55 | PDOC.CMDIS ---
Date of service: 01/31/24 LACE Index Scoring Tool Questions: Length of Stay (in days): 3 E.D. Visits: 0 Care Management Discharge Plan Reason for Hospitalization: Acute cholecystitis Discharge Plan: Bernard will discharge home when medically ready. He will follow up with community providers and his discharge plan of care as instructed. will provide transportation via private vehicle with [facility]. Patient/Family Education Needs: Review discharge instructions, discussion of [facility] Health Related Social Needs: No Data to Display
[2024-01-31] MEDS: Heparin 5,000 UNITS/ML VIAL 5000 UNITS SC (09:43)
[2024-01-31 11:15] VITALS: BP 139/82; PULSE 56; RESP 16; TEMP 36.7; O2SAT 96
== END 2024-01-31 14:16 | disposition home or self-care (01) | DRG 419 ==
LOC: ER 03:56 → MS 03:59
PROVIDERS: Surgery; Admitting Provider Surgery; Emergency Provider Student in an Organized Health Care Education/Training Program; PCP Family Medicine; Visit Provider Surgery
PROC: 0FT44ZZ Resection of Gallbladder, Percutaneous Endoscopic Approach (ICD-10-PCS; CPT 47562; principal; 2024-01-29 11:45)
DX: F17.220 Nicotine dependence, chewing tobacco, uncomplicated; I10 Essential (primary) hypertension; Z87.442 Personal history of urinary calculi; K57.30 Diverticulosis of large intestine without perforation or abscess without bleeding; K80.12 Calculus of gallbladder with acute and chronic cholecystitis without obstruction; K82.A1 Gangrene of gallbladder in cholecystitis
CPT/HCPCS: 47562; 36415; 80053; 83690; 85027; 86850; 86900; 86901; 87077; 93005; 96365; 96375; 99222; 99285; 74177; 81003; 81015; 83880; 84484; 85025; 87070; 87075; 87186; 87205; 88304; 93010; J0131; J0744; J1100; J1644; J1805; J1836; J1885; J1920; J2001; J2270; J2371; J2405; J2543; J2704; J3490

== ENCOUNTER → 2024-02-11 14:25 | Outpatient (BNVA) | payer MEDICARE, SELFPAY | PROVIDERS: PCP Family Medicine; Referring Provider Family Medicine; Visit Provider Surgery | DX: Z48.815 Encounter for surgical aftercare following surgery on the digestive system (principal); K81.0 Acute cholecystitis ==

== ENCOUNTER 2024-08-03 11:19 | Emergency (ER) | payer MEDICARE, SELFPAY ==
[2024-08-03 11:24] VITALS: BP 175/81; PULSE 89; RESP 16; TEMP 36.7; O2SAT 94
--- NOTE | 2024-08-03 11:52 | W.ED.GENAD ---
Discharge Plan Disposition Patient Disposition: Home Condition: Stable Discharge Details Clinical Impression: Poison luc dermatitis Primary Care Provider: Phil Ventura ED Provider: Emily Jackson Home Meds and New Rx's Prescriptions: New prednisone 10 mg tablet 10 mg PO DIRECTED Qty: 78 0RF Rx Instructions: Starting 08/04/2024: Take 60mg daily for 3 days, then 50mg daily for 4 days, then 40mg daily for 4 days, then 30mg daily for 4 days, then 20mg daily for 4 days, then 10mg daily for 4 days, then stop. Discharge Instructions Instructions: Poison luc Additional Instructions: You were seen in the emergency department today for evaluation of poison luc exposure to the face and eye. In our department you have a full physical examination performed, and had no evidence of damage to the cornea of your eye. Is safe for you to go home and start a steroid taper, instructions detailed on your prescription. Please take all of this medication until it is gone as the risk of recurrence was high with poison luc. You need to follow-up with your primary care provider in the next few days to discuss this visit and any symptoms that change, worsen, or persist. Thank you for allowing us to be part of your care. Discharge Data Discharge Date/Time-TO BE ENTERED AT DEPARTURE: 08/03/24 12:22 HPI General Mode of arrival: ambulatory. Date/Time Provider Initiated Documentation: 08/03/24 11:38. Limitations to Documentation: no limitations. Information obtained by: patient and old records reviewed. HPI Narrative: HPI: This is a 69-year-old male patient presenting for evaluation of poison luc exposure. The patient reports that he has a known severe allergy to poison luc, has required steroid courses in the past. Today, he was having some landscaping done and his molder vacuum is chopped up some poison luc and blew up with a leaf blower and it flew into his face and near his eye. He immediately began to develop itchiness, and over the course the morning developed swelling, crusting, consistent with his prior episodes of poison luc exposure. The patient reports that he has otherwise been in his normal state of health. He is not having changes in his vision other than obstruction by the swelling around his eye. He also noted some rash of his neck. No other acute complaints today. Exam: Gen: Awake and alert, in no apparent distress HEENT: Non-icteric sclera, conjunctiva noninjected. Pupils equal and reactive, fluorescein examination reveals no uptake concerning for corneal abrasion or ulceration. The patient has a red, swollen and indurated rash around the lateral aspect of his right eye and onto his right cheek. He has crusting and clear serous drainage around the area. The patient has tearing of the left eye. Neck: Supple Lungs: No apparent respiratory distress, normal respiratory effort. CV: Appears well perfused strong distal pulses Abdomen: Non-distended MSK: Moves 4 extremities without apparent limitation in ROM Skin: Visualized skin without rashes, cyanosis. Neuro: Normal Gait, no obvious focal deficits or facial asymmetry. Speaks in full, clear sentences. Psych: Appropriate for situation. MDM: This is a 69-year-old male patient presenting for evaluation of poison luc exposure. Differential includes but is not limited to contact dermatitis due to poison luc, considered other exposure, considered preseptal cellulitis, though the patient is without fever or other concerning symptoms and had a definitive exposure to poison luc. I did consider corneal abrasion, ulceration, foreign body, the none is present on my fluorescein examination and he has no visual acuity deficits to increase my concern for severe injury. I did shared decision-making conversation with the patient regarding management, as systemic steroid courses are not without risks. He has no history of diabetes, behavioral or mental status changes in the setting of prednisone, and for this reason we will start him on a taper, and is for 60 mg dose was provided. He will undergo a 3-week taper to prevent recurrence of the dermatitis, and will follow-up with his primary care provider to discuss next steps. ED Course: At this time, the patient has had a full medical evaluation and is safe for discharge to home. They are hemodynamically stable, ambulatory, and tolerating PO. They are understanding of the follow-up plan and return precautions. They left our facility without incident. Emily Jackson MD Related Data Home Medications ?Medication ?Instructions ?Recorded ?Confirmed prednisone 10 mg tablet 10 mg PO DIRECTED Poison luc 08/03/24 dermatitis #78 tabs Previous Rx's ?Medication ?Instructions ?Recorded prednisone 10 mg tablet 10 mg PO DIRECTED Poison luc 08/03/24 dermatitis #78 tabs Allergies Allergy/AdvReac Type Severity Reaction Status Date / Time amoxicillin Allergy Unknown unsure Verified 08/03/24 11:27 General Stated Complaint: RashLesion WILLIE: 4 Course Vital Signs Vital signs: Vital Signs Temperature 36.7 C 08/03/24 11:24 Pulse 89 08/03/24 11:24 Respiratory Rate 16 08/03/24 11:24 Blood Pressure 175/81 H 08/03/24 11:24 Pulse Oximetry 94 08/03/24 11:24 Temperature 36.7 C 08/03/24 11:24 Temperature Source Oral 08/03/24 11:24 Pulse 89 08/03/24 11:24 Respiratory Rate 16 08/03/24 11:24 Respiratory Effort Normal, Non-Labored 08/03/24 11:25 Blood Pressure 175/81 H 08/03/24 11:24 Blood Pressure Position Sitting 08/03/24 11:24 Pulse Oximetry 94 08/03/24 11:24 Oxygen Delivery Method Room Air 08/03/24 11:24 Oxygen Flow Rate 0 08/03/24 11:24 Pain Level 0 08/03/24 11:24 Medical Decision Making Quality:SDOH Health Related Social Needs: No Data to Display PFSH All Active Problems (Updated 08/03/24 @ 12:05 by Emily Jackson MD) Poison luc dermatitis (Acute) Umbilical hernia (Acute) Acute gangrenous cholecystitis (Acute) Left shoulder pain (Acute) Chewing tobacco dependence (Acute) Medical History (Updated 08/03/24 @ 12:05 by Emily Jackson MD) Kidney stones 1977 and 1986 Surgical History (Updated 02/11/24 @ 15:07 by Angela Rutledge DO) History of laparoscopic cholecystectomy (~01/2024) History of tracheostomy had GETA in 2023 and no problems w/ intubation History of colonoscopy H/O knee surgery History of hernia repair (~12/28/10) [facility] [place] Family History Father Lung cancer Hypertension Maternal Grandfather Lung cancer Mother Diabetes Social History Smoking/Tobacco Use Status: Current every day Tobacco Type: smokeless tobacco Smokeless tobacco user: chewing tobacco Smoking risk assessment performed?: Yes Alcohol Intake: current Alcohol Intake frequency: 3 or more drinks per day Alcohol type: beer Drug use: Never Substance use type: does not use Adopted: No Caregiver/Support person: No Foster care: No Household members: spouse Housing: house Number of Children: 3 Do you need help understanding health information?: Rarely 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, 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 Sexually active: Yes Do you think of yourself as: straight/heterosexual Current gender identity: male What is your relationship status?: Panel score (0-1 are the most socially isolated patients): 1 What type of physical activity do you participate in: walking Duration: 45-60 minutes/day Frequency: daily Do you feel safe at home: Yes Do you feel safe in your relationship?: Yes Additional Social history: unable to answer vladimir MITCHELL Have you Been Recently Intoxicated or Drunk Within the Last 30 days?: No Have you Ever Experienced Previous Episodes of Alcohol Withdrawal?: No Have you ever Experienced Withdrawal Seizures?: No Have you ever Experienced Delirium Tremens(DT)s?: No Have you ever undergone Alcohol Rehabilitation Treatment (i.e, inpt ot outpatient treatment programs)?: No Have you ever Experienced Blackouts?: No Have you ever Combined Alcohol with other Downers within the last 90 days?: No Have you ever Combined Alcohol with any other Substance of Abuse during the last 90 days?: No Positive Blood Alcohol level on Presentation? [PCS.BAL]: No Evidence of Increased Autonomic Activity (i.e. HR>120, tremor, sweating, agitation, nausea)?: No Result: 0
[2024-08-03] MEDS: Fluorescein STRIPS 100/BOX 1 MG OP (11:54)
[2024-08-03] MEDS: Tetracaine 0.5% 4 ML BTL OP (11:55)
[2024-08-03] MEDS: predniSONE 20 MG TAB 60 MG PO (12:05)
== END 2024-08-03 12:22 | disposition home or self-care (01) ==
PROVIDERS: Emergency Provider Emergency Medicine; PCP Family Medicine
DX: L23.7 Allergic contact dermatitis due to plants, except food (principal); F17.210 Nicotine dependence, cigarettes, uncomplicated; Z88.8 Allergy status to other drugs, medicaments and biological substances
CPT/HCPCS: 99283; J7512